=== PATIENT | female | born 1995 | race Caucasian/White ===

== ENCOUNTER 2021-05-30 03:40 | Inpatient (IN) | payer BC ==
[2021-05-30] MEDS ORDERED: Sodium Chloride 0.9% 1,000 ML IV ONE (04:16)
[2021-05-30] MEDS ORDERED: Ondansetron 4 MG/2 ML SDV IVPUSH PRN (04:16)
[2021-05-30] MEDS: Dextrose 5%-Lactated Ringers 1,000 ML IV SCH ×3 (05:13→21:26)
[2021-05-30] MEDS ORDERED: Alum Hydrox/Mag Hydrox/Simeth 30 ML, Lidocaine 2% 15 ML PO ONE ×2 (05:43)
[2021-05-30] MEDS ORDERED: hydrOXYzine HCl 25 MG/ML SDV IM PRN (06:12)
--- NOTE | 2021-05-30 09:36 | US ---
Limited abdominal ultrasound: Multiple real-time images of the upper right abdomen were obtained. Comparison: No prior abdominal imaging is available. Liver shows no focal abnormality. Gallbladder contains no shadowing gallstones, gallbladder wall thickening or biliary duct dilatation. Pancreas is obscured due to bowel gas. Right kidney is not visualized. Main portal vein shows normal hepatopedal flow. Impression: 1. Midline structures are nonvisualized due to bowel gas. 2. Other portions of the right upper quadrant abdominal ultrasound are unremarkable. Diagnostic code #2
--- NOTE | 2021-05-30 09:36 | US ---
Limited obstetrical ultrasound: Multiple real-time images were obtained transabdominally. Comparison: Prior obstetrical imaging at 05/19/21. Dates: Working TEDDY: 09/23/21, gestational age 22 weeks 3 days Current ultrasound: TEDDY 10/07/21, gestational age 21 weeks 3 days presentation: Transverse Placenta: Anterior with slight placenta previa with inferior edge being within 2.2 cm from the internal cervical os Amniotic fluid: JENNIFER 10.7 cm Measurements: BPD: 4.77 cm - 20 weeks 3 days Head circumference: 18.57 cm - 20 weeks 6 days Abdominal circumference: 16.96 cm - 22 weeks 0 days Femur length: 3.92 cm - 22 weeks 4 days Estimated weight: 470 g (1 lb. 1 oz.), estimated weight is in the 45th percentile Heart rate: 159 bpm Growth curves: Various growth parameters are between the -2 and mean standard deviation lines. Growth is appropriate from prior exams. Impression: 1. Single intrauterine fetus currently transverse in position. Dates as noted above. 2. Slight low lying placenta. 3. growth is appropriate. No acute abnormality is identified. Diagnostic code #2
[2021-05-30] MEDS ORDERED: Promethazine 25 MG in Sodium Chloride 0.9% 50 ML IV ONE (10:45)
[2021-05-30] MEDS: Promethazine 25 MG in Sodium Chloride 0.9% 50 ML IV PRN ×2 (15:59→20:26)
[2021-05-31] MEDS: Promethazine 25 MG in Sodium Chloride 0.9% 50 ML IV PRN ×2 (01:45→08:57)
[2021-05-31] MEDS: Promethazine 25 MG Tab PO PRN ×2 (06:55→13:20)
--- NOTE | 2021-05-31 09:22 | PCM.PN ---
- General Info Date of Service: 05/31/21 Functional Status: Reports: Pain Controlled - Review of Systems General: Reports: No Symptoms HEENT: Reports: No Symptoms Pulmonary: Reports: No Symptoms Cardiovascular: Reports: No Symptoms Gastrointestinal: Reports: No Symptoms Genitourinary: Reports: No Symptoms Musculoskeletal: Reports: No Symptoms Skin: Reports: No Symptoms Neurological: Reports: No Symptoms Psychiatric: Reports: No Symptoms - Patient Data Vitals - Most Recent: Last Vital Signs Temp 37.1 C 05/31/21 06:20 Pulse 71 05/31/21 06:20 Resp 14 05/31/21 06:20 BP 111/79 05/31/21 06:20 Pulse Ox 96 05/31/21 06:20 Weight - Most Recent: 57.606 kg I&O - Last 24 Hours: Intake & Output 05/30/21 05/31/21 05/31/21 22:59 06:59 14:59 Intake Total 50 Output Total 200 Balance -150 Med Orders - Current: Current Medications Hydroxyzine HCl (Hydroxyzine Hcl 25 Mg/Ml Sdv) 50 mg IM Q6H PRN PRN Reason: Nausea Last Admin: 05/30/21 07:51 Dose: 50 mg Documented by: Dextrose/Lactated Ringer's (Dextrose 5%-Lactated Ringers) 1,000 mls @ 150 mls/hr IV ASDIRECTED KETTY Last Admin: 05/30/21 21:26 Dose: 150 mls/hr Documented by: Promethazine HCl 25 mg/ Sodium (Chloride) 51 mls @ 100 mls/hr IV Q4H PRN PRN Reason: Nausea Last Admin: 05/31/21 08:57 Dose: 100 mls/hr Documented by: Ondansetron HCl (Ondansetron 4 Mg/2 Ml Sdv) 4 mg IVPUSH Q4H PRN PRN Reason: Nausea Last Admin: 05/30/21 04:33 Dose: 4 mg Documented by: Promethazine HCl (Promethazine 25 Mg Tab) 25 mg PO Q4H PRN PRN Reason: Nausea/Vomiting Last Admin: 05/31/21 06:55 Dose: 25 mg Documented by: Discontinued Medications Al Hydroxide/Mg Hydroxide 30 (ml/ Lidocaine HCl 15 ml) 0 ml PO ONETIME ONE Stop: 05/30/21 05:44 Last Admin: 05/30/21 05:58 Dose: 45 ml Documented by: Sodium Chloride (Normal Saline) 1,000 mls @ 999 mls/hr IV ONETIME ONE Stop: 05/30/21 05:16 Last Admin: 05/30/21 04:28 Dose: 999 mls/hr Documented by: Promethazine HCl 25 mg/ Sodium (Chloride) 51 mls @ 100 mls/hr IV ONETIME ONE Stop: 05/30/21 11:15 Last Admin: 05/30/21 10:46 Dose: 100 mls/hr Documented by: - Exam General: Alert, Oriented HEENT: Pupils Equal, Pupils Reactive, EOMI, Mucous Membr. Moist/[place] Neck: Supple Lungs: Clear to Auscultation, Normal Respiratory Effort Cardiovascular: Regular Rate, Regular Rhythm GI/Abdominal Exam: Normal Bowel Sounds, Soft, Non-Tender, No Organomegaly, No Distention, No Abnormal Bruit, No Mass, Pelvis Stable (Female) Exam: Normal External Exam Extremities: Normal Inspection, Normal Range of Motion, Non-Tender, No Pedal Edema, Normal Capillary Refill Skin: Warm, Dry, Intact Wound/Incisions: Healing Well Neurological: No New Focal Deficit - Patient Data Result Diagrams: 05/30/21 04:25 05/30/21 04:25 Sepsis Event Note - Evaluation Sepsis Screening Result: No Definite Risk - Focused Exam Vital Signs: Vital Signs Temp Pulse Resp BP Pulse Ox 05/31/21 06:20 37.1 C 71 14 111/79 96 05/31/21 01:48 37.2 C 71 14 129/80 93 L - Problem List Review Problem List Initiated/Reviewed/Updated: Yes - My Orders Last 24 Hours: My Active Orders 05/31/21 09:00 CORONAVIRUS COVID-19 JE [MOLEC] Stat - Assessment Assessment:: 25 year old G1 here with nausea and intractable vomiting. Had been doing better over night. Now tried apple sauce and ice chips and had significant emesis. - Plan Plan:: Nausea and emesis. continue IV phenergan. Labs pending. Can try rectal phenergan if keeps down food and fluids with IV.
[2021-05-31] MEDS: Dextrose 5%-Lactated Ringers 1,000 ML IV SCH ×2 (10:30→16:44)
[2021-05-31] MEDS ORDERED: Levothyroxine 50 MCG Tab PO ONE (10:45)
[2021-05-31] MEDS ORDERED: Acetaminophen 650 MG Supp RECTAL ONE (16:12)
[2021-05-31] MEDS ORDERED: Acetaminophen 650 MG Supp ONE (17:43)
[2021-05-31] MEDS ORDERED: Acetaminophen 650 MG Supp RECTAL PRN (17:53)
[2021-05-31] MEDS ORDERED: Potassium Chloride 40 MEQ in Dextrose 5%-Lactated Ringers 1,000 ML IV SCH (18:15)
[2021-05-31] MEDS: Potassium Chloride 40 MEQ in Dextrose 5%-Lactated Ringers 1,000 ML IV SCH (19:39)
[2021-05-31] MEDS ORDERED: Glycerin Adult 2 GM Supp RECTAL ONE (20:47)
[2021-05-31] MEDS ORDERED: Simethicone 80 MG Tab.Chew PO PRN (20:48)
[2021-05-31] MEDS ORDERED: Glycerin Pediatric 1.2 GM Supp RECTAL ONE (21:13)
[2021-05-31] MEDS ORDERED: Glycerin Adult 2 GM Supp RECTAL PRN (22:06)
[2021-06-01] MEDS: Potassium Chloride 40 MEQ in Dextrose 5%-Lactated Ringers 1,000 ML IV SCH ×2 (02:24→08:58)
--- NOTE | 2021-06-01 02:29 | PCM.PN ---
- General Info Date of Service: 06/01/21 Functional Status: Reports: New Symptoms (significant bloating and distention, reports no BM since sunday and no gas since prior to that). Denies: Tolerating Diet - Review of Systems General: Reports: No Symptoms HEENT: Reports: No Symptoms Pulmonary: Reports: No Symptoms Cardiovascular: Reports: No Symptoms Gastrointestinal: Reports: No Symptoms Genitourinary: Reports: No Symptoms Musculoskeletal: Reports: No Symptoms Skin: Reports: No Symptoms Neurological: Reports: No Symptoms Psychiatric: Reports: No Symptoms - Patient Data Vitals - Most Recent: Last Vital Signs Temp 37.1 C 06/01/21 00:18 Pulse 82 06/01/21 00:18 Resp 14 06/01/21 00:18 BP 137/82 06/01/21 00:18 Pulse Ox 96 06/01/21 00:18 Weight - Most Recent: 57.606 kg I&O - Last 24 Hours: Intake & Output 05/31/21 05/31/21 06/01/21 14:59 22:59 06:59 Intake Total 120 800 Output Total 100 Balance 120 800 -100 Lab Results Last 24 Hours: Laboratory Results - last 24 hr 05/31/21 05/31/21 05/31/21 Range/Units 09:16 09:55 09:55 WBC 8.87 (3.98-10.04) K/mm3 RBC 4.09 (3.98-5.22) M/mm3 Hgb 11.6 (11.2-15.7) gm/dl Hct 34.8 (34.1-44.9) % MCV 85.1 (79.4-94.8) fl MCH 28.4 (25.6-32.2) pg MCHC 33.3 (32.2-35.5) g/dl RDW Std Deviation 47.3 H (36.4-46.3) fL Plt Count 218 (182-369) K/mm3 MPV 10.3 (9.4-12.3) fl Neut % (Auto) 88.6 H (34.0-71.1) % Lymph % (Auto) 4.8 L (19.3-51.7) % Burke % (Auto) 6.3 (4.7-12.5) % Eos % (Auto) 0.1 L (0.7-5.8) Baso % (Auto) 0.0 L (0.1-1.2) % Neut # (Auto) 7.85 H (1.56-6.13) K/mm3 Lymph # (Auto) 0.43 L (1.18-3.74) K/mm3 Burke # (Auto) 0.56 H (0.24-0.36) K/mm3 Eos # (Auto) 0.01 L (0.04-0.36) K/mm3 Baso # (Auto) 0.00 L (0.01-0.08) K/mm3 Sodium 143 (136-145) mEq/L Potassium 2.9 L (3.5-5.1) mEq/L Chloride 108 H (98-107) mEq/L Carbon Dioxide 25 (21-32) mEq/L Anion Gap 12.9 (5-15) BUN 6 L (7-18) mg/dL Creatinine 0.7 (0.55-1.02) mg/dL Est Cr Clr Drug Dosing 99.86 mL/min Estimated GFR (MDRD) > 60 (>60) mL/min BUN/Creatinine Ratio 8.6 L (14-18) Glucose 115 H (70-99) mg/dL Calcium 8.0 L (8.5-10.1) mg/dL SARS-CoV-2 RNA (JE) Negative (NEGATIVE) Med Orders - Current: Current Medications Acetaminophen (Acetaminophen 650 Mg Supp) 650 mg RECTAL Q6H PRN PRN Reason: Abdominal Pain Glycerin (Glycerin Adult 2 Gm Supp) 1 supp RECTAL ONETIME PRN PRN Reason: Constipation Hydroxyzine HCl (Hydroxyzine Hcl 25 Mg/Ml Sdv) 50 mg IM Q6H PRN PRN Reason: Nausea Last Admin: 05/30/21 07:51 Dose: 50 mg Documented by: Dextrose/Lactated Ringer's (Dextrose 5%-Lactated Ringers) 1,000 mls @ 150 mls/hr IV ASDIRECTED [facility] Last Admin: 05/31/21 16:44 Dose: 150 mls/hr Documented by: Promethazine HCl 25 mg/ Sodium (Chloride) 51 mls @ 100 mls/hr IV Q4H PRN PRN Reason: Nausea Last Admin: 05/31/21 08:57 Dose: 100 mls/hr Documented by: Potassium Chloride 40 meq/ (Dextrose/Lactated Ringer's) 1,020 mls @ 150 mls/hr IV Q7H KETTY Stop: 06/01/21 23:02 Last Admin: 05/31/21 19:39 Dose: 150 mls/hr Documented by: Levothyroxine Sodium (Levothyroxine 50 Mcg Tab) 50 mcg PO ACBREAKFAST KETTY Ondansetron HCl (Ondansetron 4 Mg/2 Ml Sdv) 4 mg IVPUSH Q4H PRN PRN Reason: Nausea Last Admin: 05/30/21 04:33 Dose: 4 mg Documented by: Promethazine HCl (Promethazine 25 Mg Tab) 25 mg PO Q4H PRN PRN Reason: Nausea/Vomiting Last Admin: 05/31/21 13:20 Dose: 25 mg Documented by: Simethicone (Simethicone 80 Mg Tab.Chew) 80 mg PO Q4H PRN PRN Reason: Gas Last Admin: 05/31/21 22:14 Dose: 80 mg Documented by: Discontinued Medications Acetaminophen (Acetaminophen 650 Mg Supp) 975 mg RECTAL NOW ONE Stop: 05/31/21 16:13 Last Admin: 05/31/21 16:48 Dose: Not Given Documented by: Acetaminophen (Acetaminophen 650 Mg Supp) Confirm Administered Dose 650 mg .ROUTE .STK-MED ONE Stop: 05/31/21 17:44 Last Admin: 05/31/21 18:00 Dose: 650 mg Documented by: Al Hydroxide/Mg Hydroxide 30 (ml/ Lidocaine HCl 15 ml) 0 ml PO ONETIME ONE Stop: 05/30/21 05:44 Last Admin: 05/30/21 05:58 Dose: 45 ml Documented by: Glycerin (Glycerin Adult 2 Gm Supp) 1 supp RECTAL ONETIME ONE Stop: 05/31/21 20:48 Last Admin: 05/31/21 21:33 Dose: Not Given Documented by: Glycerin (Glycerin Pediatric 1.2 Gm Supp) 3 gm RECTAL ONETIME ONE Stop: 05/31/21 21:14 Last Admin: 05/31/21 21:28 Dose: 3 gm Documented by: Sodium Chloride (Normal Saline) 1,000 mls @ 999 mls/hr IV ONETIME ONE Stop: 05/30/21 05:16 Last Admin: 05/30/21 04:28 Dose: 999 mls/hr Documented by: Promethazine HCl 25 mg/ Sodium (Chloride) 51 mls @ 100 mls/hr IV ONETIME ONE Stop: 05/30/21 11:15 Last Admin: 05/30/21 10:46 Dose: 100 mls/hr Documented by: Potassium Chloride 40 meq/ (Dextrose/Lactated Ringer's) 1,020 mls @ 150 mls/hr IV ASDIRECTED KETTY Stop: 06/04/21 01:02 Levothyroxine Sodium (Levothyroxine 50 Mcg Tab) 50 mcg PO ONETIME ONE Stop: 05/31/21 10:46 Last Admin: 05/31/21 13:11 Dose: 50 mcg Documented by: - Exam General: Alert, Oriented HEENT: Pupils Equal, Pupils Reactive, EOMI, Mucous Membr. Moist/[place] Neck: Supple Lungs: Clear to Auscultation, Normal Respiratory Effort Cardiovascular: Regular Rate, Regular Rhythm GI/Abdominal Exam: Normal Bowel Sounds, Soft, Non-Tender, No Organomegaly, No Distention, No Abnormal Bruit, No Mass, Pelvis Stable (Female) Exam: Normal External Exam, Normal Speculum Exam, Normal Bimanual Exam Back Exam: Normal Inspection, Full Range of Motion Extremities: Normal Inspection, Normal Range of Motion, Non-Tender, No Pedal Edema, Normal Capillary Refill Skin: Warm, Dry, Intact Wound/Incisions: Healing Well Neurological: No New Focal Deficit Psy/Mental Status: Alert, Normal Affect, Normal Mood - Patient Data Lab Results Last 24 hrs: Laboratory Results - last 24 hr 05/31/21 05/31/21 05/31/21 Range/Units 09:16 09:55 09:55 WBC 8.87 (3.98-10.04) K/mm3 RBC 4.09 (3.98-5.22) M/mm3 Hgb 11.6 (11.2-15.7) gm/dl Hct 34.8 (34.1-44.9) % MCV 85.1 (79.4-94.8) fl MCH 28.4 (25.6-32.2) pg MCHC 33.3 (32.2-35.5) g/dl RDW Std Deviation 47.3 H (36.4-46.3) fL Plt Count 218 (182-369) K/mm3 MPV 10.3 (9.4-12.3) fl Neut % (Auto) 88.6 H (34.0-71.1) % Lymph % (Auto) 4.8 L (19.3-51.7) % Burke % (Auto) 6.3 (4.7-12.5) % Eos % (Auto) 0.1 L (0.7-5.8) Baso % (Auto) 0.0 L (0.1-1.2) % Neut # (Auto) 7.85 H (1.56-6.13) K/mm3 Lymph # (Auto) 0.43 L (1.18-3.74) K/mm3 Burke # (Auto) 0.56 H (0.24-0.36) K/mm3 Eos # (Auto) 0.01 L (0.04-0.36) K/mm3 Baso # (Auto) 0.00 L (0.01-0.08) K/mm3 Sodium 143 (136-145) mEq/L Potassium 2.9 L (3.5-5.1) mEq/L Chloride 108 H (98-107) mEq/L Carbon Dioxide 25 (21-32) mEq/L Anion Gap 12.9 (5-15) BUN 6 L (7-18) mg/dL Creatinine 0.7 (0.55-1.02) mg/dL Est Cr Clr Drug Dosing 99.86 mL/min Estimated GFR (MDRD) > 60 (>60) mL/min BUN/Creatinine Ratio 8.6 L (14-18) Glucose 115 H (70-99) mg/dL Calcium 8.0 L (8.5-10.1) mg/dL SARS-CoV-2 RNA (JE) Negative (NEGATIVE) Result Diagrams: 05/31/21 09:55 05/31/21 09:55 Sepsis Event Note - Evaluation Sepsis Screening Result: No Definite Risk - Focused Exam Vital Signs: Vital Signs Temp Temp Pulse Resp BP Pulse Ox 06/01/21 00:18 37.1 C 82 14 137/82 96 05/31/21 19:33 37.8 C 73 14 120/79 96 05/31/21 18:30 37.8 C 05/31/21 17:30 37.3 C 77 16 132/94 H 97 05/31/21 16:49 37.6 C 05/31/21 16:48 37.6 C 05/31/21 15:52 38.1 C 90 18 141/97 H 100 - Problem List Review Problem List Initiated/Reviewed/Updated: Yes - My Orders Last 24 Hours: My Active Orders 05/31/21 16:56 Admission Status [Patient Status] [ADT] Routine 05/31/21 17:53 Acetaminophen [Tylenol] 650 mg RECTAL Q6H PRN 05/31/21 19:15 Potassium Chloride 40 meq Dextrose 5%-Lactated Ringers 1,000 ml IV Q7H 05/31/21 20:48 Simethicone 80 mg PO Q4H PRN 05/31/21 22:06 Glycerin [Adult Glycerin] 1 supp RECTAL ONETIME PRN 06/01/21 05:00 COMPREHENSIVE METABOLIC PN,CMP [CHEM] Routine 06/01/21 06:00 Levothyroxine [Synthroid] 50 mcg PO ACBREAKFAST - Assessment Assessment:: 25 year old G1 here with nausea and intractable vomiting. Had been doing better through evening but now feeling significant bloating and discomfort. Reports last BM Sunday (5-6 days ago) and no gas from before that. Trial of mineral enema and if no success/improvement discussed general surgery consult and either flat plat abdominal film or CT abdomen depending on surgical assessment.
--- NOTE | 2021-06-01 04:42 | PCM.SN.2 ---
- Free Text/Narrative Note: Patient feeling more poorly. Dizzy now too. Labs will be drawn now. Plan general surgery consult at [address] scan but would await his opinion.
[2021-06-01] MEDS ORDERED: Levothyroxine 50 MCG Tab PO SCH (06:00)
[2021-06-01] MEDS: Levothyroxine 50 MCG Tab PO SCH (08:59)
--- NOTE | 2021-06-01 09:01 | PCM.CONS ---
H&P History of Present Illness - General Date of Service: 06/01/21 Admit Problem/Dx: Admission Diagnosis/Problem Admission Diagnosis/Problem Source of Information: Patient History Limitations: Reports: No Limitations - History of Present Illness Initial Comments - Free Text/Narative: Ms. Izaguirre is a 25 yo woman who is 22 weeks () who was admitted 48 hours ago due to abdominal bloating, pain, nausea and vomiting. She was feeling well with no issues up to this point. She has hypothyroidism for which she takes synthroid but is otherwise healthy appearing and has had no prior abdominal operations. She has been unable to keep anything down for a few days now, vomiting frequently. She cannot recall passing flatus for the past few days. She was having normal bowel movements up to the time she started feeling ill. She was given a suppository last night and reports having a soft bowel movement afterwards. On exam, she appears mildly uncomfortable. Vitals are in normal range. Abdomen is distended, tympanitic, soft, with mild diffuse tenderness. A gestational and abdominal ultrasound were obtained with no pathologic findings noted- the gallbladder appeared normal with no stones. Her CBC is within normal range except for mild, stable anemia around 11.5 g/dL. CMP is significant only for hypokalemia around 3 mEq/dL, and U/A shows ketonuria. - Related Data Allergies/Adverse Reactions: Allergies Allergy/AdvReac Type Severity Reaction Status Date / Time No Known Allergies Allergy Verified 05/30/21 03:54 Home Medications: Home Meds Levothyroxine Sodium [Levothyroxine] 50 mcg PO DAILY 05/30/21 [History] No122/Iron/Folic Acid [ Multi Tablet] 1 each PO DAILY 05/30/21 [History] Past Medical History HEENT History: Reports: None Cardiovascular History: Reports: None Respiratory History: Reports: None Gastrointestinal History: Reports: None Genitourinary History: Reports: None [employer] History: Reports: Musculoskeletal History: Reports: None Neurological History: Reports: None Psychiatric History: Reports: None Endocrine/Metabolic History: Reports: Hypothyroidism Hematologic History: Reports: None Immunologic History: Reports: None Oncologic (Cancer) History: Reports: None Dermatologic History: Reports: None - Past Surgical History Neurological Surgical History: Reports: None Musculoskeletal Surgical History: Reports: None Social & Family History - Tobacco Use Tobacco Use Status *Q: Never Tobacco User Second Hand Smoke Exposure: No - Caffeine Use Caffeine Use: Reports: Energy Drinks, Soda - Recreational Drug Use Recreational Drug Use: No H&P Review of Systems - Review of Systems: Review Of Systems: See Below General: Reports: Malaise HEENT: Reports: No Symptoms Pulmonary: Reports: No Symptoms Cardiovascular: Reports: No Symptoms Gastrointestinal: Reports: Abdominal Pain, Nausea, Vomiting Genitourinary: Reports: No Symptoms Musculoskeletal: Reports: No Symptoms Skin: Reports: No Symptoms Psychiatric: Reports: No Symptoms Neurological: Reports: No Symptoms Hematologic/Lymphatic: Reports: No Symptoms Immunologic: Reports: No Symptoms Exam - Exam Exam: See Below - Vital Signs Vital Signs: Last Vital Signs Temp 36.8 C 06/01/21 03:59 Pulse 82 06/01/21 03:59 Resp 16 06/01/21 03:59 BP 125/94 H 06/01/21 03:59 Pulse Ox 97 06/01/21 03:59 Weight: 57.606 kg - Exam General: Alert, Oriented, Cooperative HEENT: Conjunctiva Clear Neck: Supple, Trachea Midline Lungs: Clear to Auscultation, Normal Respiratory Effort Cardiovascular: Regular Rate, Regular Rhythm GI/Abdominal Exam: Normal Bowel Sounds, Soft, Distended, Tender, Other (gravid uterus) (Female) Exam: Deferred Rectal (Female) Exam: Deferred Extremities: Normal Inspection Skin: Warm, Dry Neuro Extensive - Mental Status: Alert, Oriented x3, Normal Mood/Affect Psychiatric: Alert - Patient Data Lab Results Last 24 hrs: Laboratory Results - last 24 hr 05/31/21 05/31/21 05/31/21 Range/Units 09:16 09:55 09:55 WBC 8.87 (3.98-10.04) K/mm3 RBC 4.09 (3.98-5.22) M/mm3 Hgb 11.6 (11.2-15.7) gm/dl Hct 34.8 (34.1-44.9) % MCV 85.1 (79.4-94.8) fl MCH 28.4 (25.6-32.2) pg MCHC 33.3 (32.2-35.5) g/dl RDW Std Deviation 47.3 H (36.4-46.3) fL Plt Count 218 (182-369) K/mm3 MPV 10.3 (9.4-12.3) fl Neut % (Auto) 88.6 H (34.0-71.1) % Lymph % (Auto) 4.8 L (19.3-51.7) % [place] % (Auto) 6.3 (4.7-12.5) % Eos % (Auto) 0.1 L (0.7-5.8) Baso % (Auto) 0.0 L (0.1-1.2) % Neut # (Auto) 7.85 H (1.56-6.13) K/mm3 Lymph # (Auto) 0.43 L (1.18-3.74) K/mm3 [place] # (Auto) 0.56 H (0.24-0.36) K/mm3 Eos # (Auto) 0.01 L (0.04-0.36) K/mm3 Baso # (Auto) 0.00 L (0.01-0.08) K/mm3 Manual Slide Review Sodium 143 (136-145) mEq/L Potassium 2.9 L (3.5-5.1) mEq/L Chloride 108 H (98-107) mEq/L Carbon Dioxide 25 (21-32) mEq/L Anion Gap 12.9 (5-15) BUN 6 L (7-18) mg/dL Creatinine 0.7 (0.55-1.02) mg/dL Est Cr Clr Drug Dosing 99.86 mL/min Estimated GFR (MDRD) > 60 (>60) mL/min BUN/Creatinine Ratio 8.6 L (14-18) Glucose 115 H (70-99) mg/dL Calcium 8.0 L (8.5-10.1) mg/dL Total Bilirubin (0.2-1.0) mg/dL AST (15-37) U/L ALT (14-59) U/L Alkaline Phosphatase (46-116) U/L Total Protein (6.4-8.2) g/dl Albumin (3.4-5.0) g/dl Globulin gm/dL Albumin/Globulin Ratio (1-2) SARS-CoV-2 RNA (JE) Negative (NEGATIVE) 06/01/21 06/01/21 Range/Units 06:20 06:20 WBC 8.33 (3.98-10.04) K/mm3 RBC 3.87 L (3.98-5.22) M/mm3 Hgb 11.1 L (11.2-15.7) gm/dl Hct 33.2 L (34.1-44.9) % MCV 85.8 (79.4-94.8) fl MCH 28.7 (25.6-32.2) pg MCHC 33.4 (32.2-35.5) g/dl RDW Std Deviation 47.5 H (36.4-46.3) fL Plt Count 201 (182-369) K/mm3 MPV 10.0 (9.4-12.3) fl Neut % (Auto) 89.6 H (34.0-71.1) % Lymph % (Auto) 4.4 L (19.3-51.7) % [place] % (Auto) 5.5 (4.7-12.5) % Eos % (Auto) 0 L (0.7-5.8) Baso % (Auto) 0.1 (0.1-1.2) % Neut # (Auto) 7.46 H (1.56-6.13) K/mm3 Lymph # (Auto) 0.37 L (1.18-3.74) K/mm3 [place] # (Auto) 0.46 H (0.24-0.36) K/mm3 Eos # (Auto) 0.00 L (0.04-0.36) K/mm3 Baso # (Auto) 0.01 (0.01-0.08) K/mm3 Manual Slide Review Abnormal smear Sodium 140 (136-145) mEq/L Potassium 3.1 L (3.5-5.1) mEq/L Chloride 106 (98-107) mEq/L Carbon Dioxide 23 (21-32) mEq/L Anion Gap 14.1 (5-15) BUN 5 L (7-18) mg/dL Creatinine 0.6 (0.55-1.02) mg/dL Est Cr Clr Drug Dosing 116.50 mL/min Estimated GFR (MDRD) > 60 (>60) mL/min BUN/Creatinine Ratio 8.3 L (14-18) Glucose 138 H (70-99) mg/dL Calcium 7.9 L (8.5-10.1) mg/dL Total Bilirubin 0.3 (0.2-1.0) mg/dL AST 27 (15-37) U/L ALT 34 (14-59) U/L Alkaline Phosphatase 41 L (46-116) U/L Total Protein 6.2 L (6.4-8.2) g/dl Albumin 2.7 L (3.4-5.0) g/dl Globulin 3.5 gm/dL Albumin/Globulin Ratio 0.8 L (1-2) SARS-CoV-2 RNA (JE) (NEGATIVE) Result Diagrams: 06/01/21 06:20 06/01/21 06:20 Sepsis Event Note - Evaluation Sepsis Screening Result: No Definite Risk - Focused Exam Vital Signs: Vital Signs Temp Pulse Resp BP Pulse Ox 06/01/21 03:59 36.8 C 82 16 125/94 H 97 06/01/21 00:18 37.1 C 82 14 137/82 96 Consult PN Assessment/Plan Procedures: Procedures BLOOD TYPING SEROLOGIC ABO (03/29/21) BLOOD TYPING SEROLOGIC RH(D) (03/29/21) CHYLMD TRACH DNA AMP PROBE (03/29/21) COMPLETE CBC W/AUTO DIFF WBC (03/29/21) HEPATITIS B SURFACE AG IA (03/29/21) HEPATITIS C AB TEST (03/29/21) HIV-1 AG W/HIV-1 & -2 AB AG IA (03/29/21) N.GONORRHOEAE DNA AMP PROB (03/29/21) OB US >/= 14 WKS SNGL FETUS (05/19/21) RBC ANTIBODY SCREEN (03/29/21) RUBELLA ANTIBODY (03/29/21) SYPHILIS TEST NON-TREP QUAL (03/29/21) URINALYSIS AUTO W/O SCOPE (03/29/21) URINE CULTURE/COLONY COUNT (03/29/21) Problem List Initiated/Reviewed/Updated: Yes My Orders Last 24 Hours: My Active Orders 06/01/21 08:47 Abdomen 2V AP Flat Upright [CR] Urgent 06/01/21 08:49 TSH [CHEM] Routine 06/01/21 09:00 Potassium Chloride [KCl in Water 10 MEQ/100 ML] 10 meq Premix Bag 1 bag IV Q1H Plan: Nausea and vomiting for past 24 hours, with abdominal cramping and distention. Differential includes constipation, gastroenteritis, hyperemesis gravidarum, and less likely ileus or de symone small bowel obstruction. No evidence of acute abdomen or need for emergency surgery. Recommendations: -2 view plain films of abdomen to assess for ileus, constipation -check TSH -supplement 40 mEq K+ IV Requesting Provider: Charles Date Consult Requested: 06/01/21 Reason for Consult: abdominal pain, vomiting Patient History Reviewed: Yes Admission H&P Reviewed: Yes (no H&P for this admission in [facility]) Notified Requestor: Yes Time Spent (in minutes): 60
--- NOTE | 2021-06-01 09:11 | PCM.LDHP ---
L&D History of Present Illness - General Date of Service: 05/30/21 Admit Problem/Dx: Admission Diagnosis/Problem Admission Diagnosis/Problem Source of Information: Patient History Limitations: Reports: No Limitations - History of Present Illness Introduction:: Patient is admitted to observation during the course of last evening. She has a 2-day history of nausea in . She has had an inconsistent response to antiemetics. She has had the most relief from IV Phenergan. Has not had a significant bout of food in the last 2 days. Has been able to keep fluids down at times but throws it up at other times. She has had mild hypokalemia which is now being treated with IV fluids supplemented with potassium. The course the last 12 to 24 hours patient's abdomen has become somewhat firm and mildly distended. She is not had a bowel movement for at least 3 days by her history. Surgical consult was obtained. Will obtain a flatplate of the abdomen. Will treat as indicated by these results. Continue with IV fluid hydration. 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 TEDDY October 03, 2021 is based upon an early ultrasound done on March 29, 2021 at 13-1/7 weeks gestational age. This places her now approximately 22 weeks gestation. has been unremarkable up to this point. She has hypothyroid and thyroid function studies done early in the were unremarkable. She has been taking her thyroid medications up until the last 2 days when she is not able to keep meds down. She is reporting good activity. No significant contractions. Denies any loss of vaginal fluid, bleeding etc. Risk factors for the include hypothyroidism and nausea. Also distance from the hospital and that she lives in the [place], [place]. Laboratory testing in : Blood is be positive with a negative antibody screen. Hemoglobin at first lexa visit was 12.6 g/dL. Platelets are 234,000. She is rubella immune. RPR is nonreactive. Urinalysis was negative. B surface antigen and HIV assays were both negative. Chlamydia, gonorrhea, hepatitis C antibodies were negative. Allergies: None Medications: 1. Levothyroxine 50 mcg/day 2. vitamins daily Past medical history: 1. Hypothyroidism Past surgical history: Unremarkable Family history: Mother is alive but has hypothyroidism. Father is alive but suffers from atrial fibrillation. 1 brother alive and well. Paternal grandmother alive but with heart disease and a pacemaker. Maternal grandfather alive and well. Paternal grandmother with hypothyroidism. Paternal grandfather alive and well. No bleeding, clotting, or anesthesia problems noted in the family. Social history: Patient is single. Her significant other is Manuel Proctor. [place] in the [facility] area. She is a school graduate. She does not use any significance alcohol, drugs or tobacco. Review of systems: As per HPI. Skin: Negative Lungs: No infectious symptoms or shortness of breath Cardiovascular: No chest pain or exercise intolerance Breasts: No lumps, changes in size, pain, dimpling, discharge or axillary or supraclavicular concerns. GI: Negative : Per HPI. Musculoskeletal: Negative Neurological: Negative In general the patient is well-developed, well-nourished, pleasant female of stated age in no acute distress. Skin is warm dry without lesions. HEENT, neck and back within normal limits. Lungs are clear with good breath sounds in all lung grover. Cardiovascular exam shows regular and rhythm without murmurs. Abdomen upon admission to observation is mildly distended, firm, uncomfortable with palpation. No acute abdomen signs are noted. Genital exam is not performed as patient is having no problems referable to this area. Extremities and neurological exam are grossly within normal limits. 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: Musculoskeletal History: Reports: None Neurological History: Reports: None Psychiatric History: Reports: None Endocrine/Metabolic History: Reports: Hypothyroidism Hematologic History: Reports: None Immunologic History: Reports: None Oncologic (Cancer) History: Reports: None Dermatologic History: Reports: None - Past Surgical History Neurological Surgical History: Reports: None Musculoskeletal Surgical History: Reports: None Social & Family History - Tobacco Use Tobacco Use Status *Q: Never Tobacco User Second Hand Smoke Exposure: No - Caffeine Use Caffeine Use: Reports: Energy Drinks, Soda - Recreational Drug Use Recreational Drug Use: No H&P Review of Systems - Review of Systems: Review Of Systems: See Below L&D Exam - Exam Exam: See Below - Vital Signs Vital Signs: Last Vital Signs Temp 36.8 C 06/01/21 03:59 Pulse 82 06/01/21 03:59 Resp 16 06/01/21 03:59 BP 125/94 H 06/01/21 03:59 Pulse Ox 97 06/01/21 03:59 Weight: 57.606 kg - OB Specific Contraction Frequency (min): 0 Contraction Intensity: absent - Patient Data Lab Results Last 24 hrs: Laboratory Results - last 24 hr 05/31/21 05/31/21 05/31/21 Range/Units 09:16 09:55 09:55 WBC 8.87 (3.98-10.04) K/mm3 RBC 4.09 (3.98-5.22) M/mm3 Hgb 11.6 (11.2-15.7) gm/dl Hct 34.8 (34.1-44.9) % MCV 85.1 (79.4-94.8) fl MCH 28.4 (25.6-32.2) pg MCHC 33.3 (32.2-35.5) g/dl RDW Std Deviation 47.3 H (36.4-46.3) fL Plt Count 218 (182-369) K/mm3 MPV 10.3 (9.4-12.3) fl Neut % (Auto) 88.6 H (34.0-71.1) % Lymph % (Auto) 4.8 L (19.3-51.7) % [place] % (Auto) 6.3 (4.7-12.5) % Eos % (Auto) 0.1 L (0.7-5.8) Baso % (Auto) 0.0 L (0.1-1.2) % Neut # (Auto) 7.85 H (1.56-6.13) K/mm3 Lymph # (Auto) 0.43 L (1.18-3.74) K/mm3 [place] # (Auto) 0.56 H (0.24-0.36) K/mm3 Eos # (Auto) 0.01 L (0.04-0.36) K/mm3 Baso # (Auto) 0.00 L (0.01-0.08) K/mm3 Manual Slide Review Sodium 143 (136-145) mEq/L Potassium 2.9 L (3.5-5.1) mEq/L Chloride 108 H (98-107) mEq/L Carbon Dioxide 25 (21-32) mEq/L Anion Gap 12.9 (5-15) BUN 6 L (7-18) mg/dL Creatinine 0.7 (0.55-1.02) mg/dL Est Cr Clr Drug Dosing 99.86 mL/min Estimated GFR (MDRD) > 60 (>60) mL/min BUN/Creatinine Ratio 8.6 L (14-18) Glucose 115 H (70-99) mg/dL Calcium 8.0 L (8.5-10.1) mg/dL Total Bilirubin (0.2-1.0) mg/dL AST (15-37) U/L ALT (14-59) U/L Alkaline Phosphatase (46-116) U/L Total Protein (6.4-8.2) g/dl Albumin (3.4-5.0) g/dl Globulin gm/dL Albumin/Globulin Ratio (1-2) SARS-CoV-2 RNA (JE) Negative (NEGATIVE) 06/01/21 06/01/21 Range/Units 06:20 06:20 WBC 8.33 (3.98-10.04) K/mm3 RBC 3.87 L (3.98-5.22) M/mm3 Hgb 11.1 L (11.2-15.7) gm/dl Hct 33.2 L (34.1-44.9) % MCV 85.8 (79.4-94.8) fl MCH 28.7 (25.6-32.2) pg MCHC 33.4 (32.2-35.5) g/dl RDW Std Deviation 47.5 H (36.4-46.3) fL Plt Count 201 (182-369) K/mm3 MPV 10.0 (9.4-12.3) fl Neut % (Auto) 89.6 H (34.0-71.1) % Lymph % (Auto) 4.4 L (19.3-51.7) % [place] % (Auto) 5.5 (4.7-12.5) % Eos % (Auto) 0 L (0.7-5.8) Baso % (Auto) 0.1 (0.1-1.2) % Neut # (Auto) 7.46 H (1.56-6.13) K/mm3 Lymph # (Auto) 0.37 L (1.18-3.74) K/mm3 [place] # (Auto) 0.46 H (0.24-0.36) K/mm3 Eos # (Auto) 0.00 L (0.04-0.36) K/mm3 Baso # (Auto) 0.01 (0.01-0.08) K/mm3 Manual Slide Review Abnormal smear Sodium 140 (136-145) mEq/L Potassium 3.1 L (3.5-5.1) mEq/L Chloride 106 (98-107) mEq/L Carbon Dioxide 23 (21-32) mEq/L Anion Gap 14.1 (5-15) BUN 5 L (7-18) mg/dL Creatinine 0.6 (0.55-1.02) mg/dL Est Cr Clr Drug Dosing 116.50 mL/min Estimated GFR (MDRD) > 60 (>60) mL/min BUN/Creatinine Ratio 8.3 L (14-18) Glucose 138 H (70-99) mg/dL Calcium 7.9 L (8.5-10.1) mg/dL Total Bilirubin 0.3 (0.2-1.0) mg/dL AST 27 (15-37) U/L ALT 34 (14-59) U/L Alkaline Phosphatase 41 L (46-116) U/L Total Protein 6.2 L (6.4-8.2) g/dl Albumin 2.7 L (3.4-5.0) g/dl Globulin 3.5 gm/dL Albumin/Globulin Ratio 0.8 L (1-2) SARS-CoV-2 RNA (JE) (NEGATIVE) Result Diagrams: 06/01/21 06:20 06/01/21 06:20 Problem List Initiated/Reviewed/Updated: Yes Orders Last 24hrs: Active Orders 24 hr Category Date Time Status Admission Status [Patient Status] [ADT] Routine ADT 05/31/21 16:56 Active Enema [RC] ASDIRECTED Care 06/01/21 02:49 Active Notify Provider Consults [RC] ASDIRECTED Care 06/01/21 07:43 Active Consult to Physician [CONS] Stat Cons 06/01/21 07:41 Active Abdomen 2V AP Flat Upright [CR] Urgent Exams 06/01/21 08:47 Ordered TSH [CHEM] Routine Lab 06/01/21 06:20 Received Acetaminophen [Tylenol] Med 05/31/21 17:53 Active 650 mg RECTAL Q6H PRN Glycerin [Adult Glycerin] Med 05/31/21 22:06 Active 1 supp RECTAL ONETIME PRN Levothyroxine [Synthroid] Med 06/01/21 09:00 Active 50 mcg PO ACBREAKFAST Potassium Chloride 40 meq Med 05/31/21 19:15 Active Dextrose 5%-Lactated Ringers 1,000 ml IV Q7H Potassium Chloride [KCl in Water 10 MEQ/100 ML] 10 meq Med 06/01/21 09:30 Active Premix Bag 1 bag IV Q1H Simethicone Med 05/31/21 20:48 Active 80 mg PO Q4H PRN Medication Orders Acetaminophen (Acetaminophen 650 Mg Supp) 650 mg RECTAL Q6H PRN PRN Reason: Abdominal Pain Glycerin (Glycerin Adult 2 Gm Supp) 1 supp RECTAL ONETIME PRN PRN Reason: Constipation Hydroxyzine HCl (Hydroxyzine Hcl 25 Mg/Ml Sdv) 50 mg IM Q6H PRN PRN Reason: Nausea Last Admin: 05/30/21 07:51 Dose: 50 mg Documented by: PRICILA Dextrose/Lactated Ringer's (Dextrose 5%-Lactated Ringers) 1,000 mls @ 150 mls/hr IV ASDIRECTED COUNTS INCLUDE 234 BEDS AT THE [facility] Last Admin: 05/31/21 16:44 Dose: 150 mls/hr Documented by: Infusion: 05/31/21 16:44 Dose: 150 mls/hr Documented by: Admin: 05/31/21 10:30 Dose: 150 mls/hr Documented by: Infusion: 05/31/21 04:07 Dose: 150 mls/hr Documented by: Admin: 05/30/21 21:26 Dose: 150 mls/hr Documented by: Infusion: 05/30/21 16:53 Dose: 150 mls/hr Documented by: Admin: 05/30/21 10:12 Dose: 150 mls/hr Documented by: Infusion: 05/30/21 10:12 Dose: 150 mls/hr Documented by: Admin: 05/30/21 05:13 Dose: 150 mls/hr Documented by: ANNE MARIE Promethazine HCl 25 mg/ Sodium (Chloride) 51 mls @ 100 mls/hr IV Q4H PRN PRN Reason: Nausea Last Admin: 05/31/21 08:57 Dose: 100 mls/hr Documented by: Infusion: 05/31/21 02:16 Dose: 100 mls/hr Documented by: Admin: 05/31/21 01:45 Dose: 100 mls/hr Documented by: Infusion: 05/30/21 20:57 Dose: 100 mls/hr Documented by: Admin: 05/30/21 20:26 Dose: 100 mls/hr Documented by: Infusion: 05/30/21 16:30 Dose: 100 mls/hr Documented by: Admin: 05/30/21 15:59 Dose: 100 mls/hr Documented by: PRICILA Potassium Chloride 40 meq/ (Dextrose/Lactated Ringer's) 1,020 mls @ 150 mls/hr IV Q7H KETTY Stop: 06/01/21 23:02 Last Admin: 06/01/21 08:58 Dose: 150 mls/hr Documented by: Infusion: 06/01/21 08:58 Dose: 150 mls/hr Documented by: Admin: 06/01/21 02:24 Dose: 150 mls/hr Documented by: Infusion: 06/01/21 02:24 Dose: 150 mls/hr Documented by: Admin: 05/31/21 19:39 Dose: 150 mls/hr Documented by: MALIK Potassium Chloride 10 meq/ (Premix) 100 mls @ 100 mls/hr IV Q1H KETTY Stop: 06/01/21 13:29 Levothyroxine Sodium (Levothyroxine 50 Mcg Tab) 50 mcg PO ACBREAKFAST KETTY Last Admin: 06/01/21 08:59 Dose: 50 mcg Documented by: [id number] Ondansetron HCl (Ondansetron 4 Mg/2 Ml Sdv) 4 mg IVPUSH Q4H PRN PRN Reason: Nausea Last Admin: 05/30/21 04:33 Dose: 4 mg Documented by: MALIK Promethazine HCl (Promethazine 25 Mg Tab) 25 mg PO Q4H PRN PRN Reason: Nausea/Vomiting Last Admin: 05/31/21 13:20 Dose: 25 mg Documented by: Admin: 05/31/21 06:55 Dose: 25 mg Documented by: DAVEY Simethicone (Simethicone 80 Mg Tab.Chew) 80 mg PO Q4H PRN PRN Reason: Gas Last Admin: 05/31/21 22:14 Dose: 80 mg Documented by: MALIK Assessment/Plan Comment:: Nausea and emesis. continue IV phenergan. Labs pending. Can try rectal phenergan if keeps down food and fluids with IV. Assessment at time of observation admission: 1. 22-week intrauterine 2. Nausea with emesis 3. Moderate abdominal distention, discomfort 4. Has not had a bowel movement for the last 3 days plus. 5. Mild hypokalemia treated with IV potassium supplementation 6. Normal gallbladder ultrasound, normal OB ultrasound done 2 days ago. Plan: 1. General surgery consultation. We will do a flat plate of the abdomen and proceed with therapy directed by the flatplate. 2. Continue IV fluid hydration with potassium supplementation
[2021-06-01] MEDS: Potassium Chloride 10 MEQ in Premix Bag 1 BAG IV SCH ×2 (09:49→17:07)
--- NOTE | 2021-06-01 09:50 | CR ---
Abdomen: Supine and upright views of the abdomen were obtained. Comparison: No prior abdominal x-rays available. Diffuse gaseous dilatation is seen within the colon. Lack of gas is noted within the descending colon and rectum. Air-fluid levels are noted within the colon. Soft tissue fullness is seen within the left side of the pelvis and extending slightly superior. No free air is seen. Bony structures are unremarkable. Impression: 1. Significantly gas dilated colon with air-fluid levels. Lack of gas within the descending colon and rectum are seen. Soft tissue prominence is seen within the left side of the pelvis extending superiorly. Please correlate if patient has any symptoms to suggest ovarian torsion or other obstructing soft tissue abnormality. 2. No free air is seen at this time. Diagnostic code #5
--- NOTE | 2021-06-01 10:23 | PCM.PREANE ---
Preanesthetic Assessment - Procedure Proposed Procedure: Exploratory laparotomy - Anesthesia/Transfusion/Family Hx Anesthesia History: No Prior Anesthesia Family History of Anesthesia Reaction: No Transfusion History: No Prior Transfusion(s) Intubation History: Unknown - Review of Systems General: No Symptoms (22 weeks ), Fatigue Pulmonary: No Symptoms Cardiovascular: No Symptoms Gastrointestinal: Abdominal Pain (04/14), Constipation, Decreased Appetite, Nausea, Vomiting Neurological: No Symptoms Other: Reports: None, Thyroid Problems (Hypothyroid) - Physical Assessment NPO Status Date: 06/01/21 NPO Status Time: 08:00 (water) Vital Signs: Last Vital Signs Temp 36.8 C 06/01/21 08:03 Pulse 75 06/01/21 08:03 Resp 16 06/01/21 08:03 BP 105/65 06/01/21 08:03 Pulse Ox 96 06/01/21 08:03 Height: 1.6 m Weight: 57.606 kg ASA Class: 2 Mental Status: Alert & Oriented x3 Airway Class: Mallampati = 2 Dentition: Reports: Normal Dentition, Caries (bottom retainer) Thyro-Mental Finger Breadths: 3 Mouth Opening Finger Breadths: 3 ROM/Head Extension: Full Lungs: Clear to Auscultation, Normal Respiratory Effort Cardiovascular: Regular Rate, Regular Rhythm, No Murmurs - Lab Values: Laboratory Last Values WBC 8.33 K/mm3 (3.98-10.04) 06/01/21 06:20 RBC 3.87 M/mm3 (3.98-5.22) L 06/01/21 06:20 Hgb 11.1 gm/dl (11.2-15.7) L 06/01/21 06:20 Hct 33.2 % (34.1-44.9) L 06/01/21 06:20 MCV 85.8 fl (79.4-94.8) 06/01/21 06:20 MCH 28.7 pg (25.6-32.2) 06/01/21 06:20 MCHC 33.4 g/dl (32.2-35.5) 06/01/21 06:20 RDW Std Deviation 47.5 fL (36.4-46.3) H 06/01/21 06:20 Plt Count 201 K/mm3 (182-369) 06/01/21 06:20 MPV 10.0 fl (9.4-12.3) 06/01/21 06:20 Neut % (Auto) 89.6 % (34.0-71.1) H 06/01/21 06:20 Lymph % (Auto) 4.4 % (19.3-51.7) L 06/01/21 06:20 [place] % (Auto) 5.5 % (4.7-12.5) 06/01/21 06:20 Eos % (Auto) 0 (0.7-5.8) L 06/01/21 06:20 Baso % (Auto) 0.1 % (0.1-1.2) 06/01/21 06:20 Neut # (Auto) 7.46 K/mm3 (1.56-6.13) H 06/01/21 06:20 Lymph # (Auto) 0.37 K/mm3 (1.18-3.74) L 06/01/21 06:20 [place] # (Auto) 0.46 K/mm3 (0.24-0.36) H 06/01/21 06:20 Eos # (Auto) 0.00 K/mm3 (0.04-0.36) L 06/01/21 06:20 Baso # (Auto) 0.01 K/mm3 (0.01-0.08) 06/01/21 06:20 Manual Slide Review Abnormal smear 06/01/21 06:20 Sodium 140 mEq/L (136-145) 06/01/21 06:20 Potassium 3.1 mEq/L (3.5-5.1) L 06/01/21 06:20 Chloride 106 mEq/L (98-107) 06/01/21 06:20 Carbon Dioxide 23 mEq/L (21-32) 06/01/21 06:20 Anion Gap 14.1 (5-15) 06/01/21 06:20 BUN 5 mg/dL (7-18) L 06/01/21 06:20 Creatinine 0.6 mg/dL (0.55-1.02) 06/01/21 06:20 Est Cr Clr Drug Dosing 116.50 mL/min 06/01/21 06:20 Estimated GFR (MDRD) > 60 mL/min (>60) 06/01/21 06:20 BUN/Creatinine Ratio 8.3 (14-18) L 06/01/21 06:20 Glucose 138 mg/dL (70-99) H 06/01/21 06:20 Calcium 7.9 mg/dL (8.5-10.1) L 06/01/21 06:20 Total Bilirubin 0.3 mg/dL (0.2-1.0) 06/01/21 06:20 AST 27 U/L (15-37) 06/01/21 06:20 ALT 34 U/L (14-59) 06/01/21 06:20 Alkaline Phosphatase 41 U/L (46-116) L 06/01/21 06:20 Total Protein 6.2 g/dl (6.4-8.2) L 06/01/21 06:20 Albumin 2.7 g/dl (3.4-5.0) L 06/01/21 06:20 Globulin 3.5 gm/dL 06/01/21 06:20 Albumin/Globulin Ratio 0.8 (1-2) L 06/01/21 06:20 TSH 3rd Generation 1.861 uIU/mL (0.358-3.74) 06/01/21 06:20 Urine Color Yellow (Yellow) 05/30/21 03:49 Urine Appearance Clear (Clear) 05/30/21 03:49 Urine pH 6.0 (5.0-8.0) 05/30/21 03:49 Ur Specific [place] 1.025 (1.005-1.030) 05/30/21 03:49 Urine Protein Negative (Negative) 05/30/21 03:49 Urine Glucose (UA) Negative (Negative) 05/30/21 03:49 Urine Ketones 4+ (Negative) H 05/30/21 03:49 Urine Occult Blood Negative (Negative) 05/30/21 03:49 Urine Nitrite Negative (Negative) 05/30/21 03:49 Urine Bilirubin Negative (Negative) 05/30/21 03:49 Urine Urobilinogen 0.2 (0.2-1.0) 05/30/21 03:49 Ur Leukocyte Esterase Trace (Negative) H 05/30/21 03:49 Urine RBC 0-5 /hpf (0-5) 05/30/21 03:49 Urine WBC 0-5 /hpf (0-5) 05/30/21 03:49 Ur Squamous Epith Cells 5-10 /hpf (0-5) H 05/30/21 03:49 Urine Bacteria Moderate /hpf (FEW) H 05/30/21 03:49 Urine Mucus Few /hpf (FEW) 05/30/21 03:49 SARS-CoV-2 RNA (JE) Negative (NEGATIVE) 05/31/21 09:16 Above labs reviewed and noted and within acceptable ranges to proceed with scheduled procedure. - Allergies Allergies/Adverse Reactions: Allergies Allergy/AdvReac Type Severity Reaction Status Date / Time No Known Allergies Allergy Verified 05/30/21 03:54 - Anesthesia Plan Pre-Op Medication Ordered: None, Other (IV reglan 10mg and P.O bicitra 30 ml's both at 1035) - Acknowledgements Anesthesia Type Planned: General Anesthesia Pt an Appropriate Candidate for the Planned Anesthesia: Yes Alternatives and Risks of Anesthesia Discussed w Pt/Guardian: Yes Pt/Guardian Understands and Agrees with Anesthesia Plan: Yes PreAnesthesia Questionnaire HEENT History: Reports: None Cardiovascular History: Reports: None Respiratory History: Reports: None Gastrointestinal History: Reports: None Genitourinary History: Reports: None 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: Musculoskeletal History: Reports: None Neurological History: Reports: None Psychiatric History: Reports: None Endocrine/Metabolic History: Reports: Hypothyroidism Hematologic History: Reports: None Immunologic History: Reports: None Oncologic (Cancer) History: Reports: None Dermatologic History: Reports: None - Past Surgical History Neurological Surgical History: Reports: None Musculoskeletal Surgical History: Reports: None - SUBSTANCE USE Tobacco Use Status *Q: Never Tobacco User Second Hand Smoke Exposure: No Recreational Drug Use History: No - HOME MEDS Home Medications: Home Meds Levothyroxine Sodium [Levothyroxine] 50 mcg PO DAILY 05/30/21 [History] No122/Iron/Folic Acid [ Multi Tablet] 1 each PO DAILY 05/30/21 [History] - CURRENT (IN HOUSE) MEDS Current Meds: Current Medications Acetaminophen (Acetaminophen 650 Mg Supp) 650 mg RECTAL Q6H PRN PRN Reason: Abdominal Pain Glycerin (Glycerin Adult 2 Gm Supp) 1 supp RECTAL ONETIME PRN PRN Reason: Constipation Hydroxyzine HCl (Hydroxyzine Hcl 25 Mg/Ml Sdv) 50 mg IM Q6H PRN PRN Reason: Nausea Last Admin: 05/30/21 07:51 Dose: 50 mg Documented by: Dextrose/Lactated Ringer's (Dextrose 5%-Lactated Ringers) 1,000 mls @ 150 mls/hr IV ASDIRECTED [facility] Last Admin: 05/31/21 16:44 Dose: 150 mls/hr Documented by: Promethazine HCl 25 mg/ Sodium (Chloride) 51 mls @ 100 mls/hr IV Q4H PRN PRN Reason: Nausea Last Admin: 05/31/21 08:57 Dose: 100 mls/hr Documented by: Potassium Chloride 40 meq/ (Dextrose/Lactated Ringer's) 1,020 mls @ 150 mls/hr IV Q7H [facility] Stop: 06/01/21 23:02 Last Admin: 06/01/21 08:58 Dose: 150 mls/hr Documented by: Potassium Chloride 10 meq/ (Premix) 100 mls @ 100 mls/hr IV Q1H [facility] Stop: 06/01/21 13:29 Last Admin: 06/01/21 09:49 Dose: 100 mls/hr Documented by: Levothyroxine Sodium (Levothyroxine 50 Mcg Tab) 50 mcg PO ACBREAKFAST [facility] Last Admin: 06/01/21 08:59 Dose: 50 mcg Documented by: Ondansetron HCl (Ondansetron 4 Mg/2 Ml Sdv) 4 mg IVPUSH Q4H PRN PRN Reason: Nausea Last Admin: 05/30/21 04:33 Dose: 4 mg Documented by: Promethazine HCl (Promethazine 25 Mg Tab) 25 mg PO Q4H PRN PRN Reason: Nausea/Vomiting Last Admin: 05/31/21 13:20 Dose: 25 mg Documented by: Simethicone (Simethicone 80 Mg Tab.Chew) 80 mg PO Q4H PRN PRN Reason: Gas Last Admin: 05/31/21 22:14 Dose: 80 mg Documented by: Discontinued Medications Acetaminophen (Acetaminophen 650 Mg Supp) 975 mg RECTAL NOW ONE Stop: 05/31/21 16:13 Last Admin: 05/31/21 16:48 Dose: Not Given Documented by: Acetaminophen (Acetaminophen 650 Mg Supp) Confirm Administered Dose 650 mg .ROUTE .STK-MED ONE Stop: 05/31/21 17:44 Last Admin: 05/31/21 18:00 Dose: 650 mg Documented by: Al Hydroxide/Mg Hydroxide 30 (ml/ Lidocaine HCl 15 ml) 0 ml PO ONETIME ONE Stop: 05/30/21 05:44 Last Admin: 05/30/21 05:58 Dose: 45 ml Documented by: Glycerin (Glycerin Adult 2 Gm Supp) 1 supp RECTAL ONETIME ONE Stop: 05/31/21 20:48 Last Admin: 05/31/21 21:33 Dose: Not Given Documented by: Glycerin (Glycerin Pediatric 1.2 Gm Supp) 3 gm RECTAL ONETIME ONE Stop: 05/31/21 21:14 Last Admin: 05/31/21 21:28 Dose: 3 gm Documented by: Sodium Chloride (Normal Saline) 1,000 mls @ 999 mls/hr IV ONETIME ONE Stop: 05/30/21 05:16 Last Admin: 05/30/21 04:28 Dose: 999 mls/hr Documented by: Promethazine HCl 25 mg/ Sodium (Chloride) 51 mls @ 100 mls/hr IV ONETIME ONE Stop: 05/30/21 11:15 Last Admin: 05/30/21 10:46 Dose: 100 mls/hr Documented by: Potassium Chloride 40 meq/ (Dextrose/Lactated Ringer's) 1,020 mls @ 150 mls/hr IV ASDIRECTED [facility] Stop: 06/04/21 01:02 Levothyroxine Sodium (Levothyroxine 50 Mcg Tab) 50 mcg PO ACBREAKFAST [facility] Levothyroxine Sodium (Levothyroxine 50 Mcg Tab) 50 mcg PO ONETIME ONE Stop: 05/31/21 10:46 Last Admin: 05/31/21 13:11 Dose: 50 mcg Documented by:
[2021-06-01] MEDS ORDERED: Citric Acid/Sodium Citrate Solution 30 ML Cup ONE (10:29)
[2021-06-01] MEDS ORDERED: Metoclopramide 10 MG/2 ML SDV ONE (10:29)
[2021-06-01] MEDS ORDERED: Bupivacaine 0.5%/EPINEPHrine 1:200,000 50 ML MDV ONE (10:33)
[2021-06-01] MEDS ORDERED: Metoclopramide 10 MG/2 ML SDV IVPUSH ONE (10:33)
[2021-06-01] MEDS ORDERED: Citric Acid/Sodium Citrate Solution 30 ML Cup PO ONE (10:33)
[2021-06-01] MEDS ORDERED: Lactated Ringers 1,000 ML IV ONE (10:42)
[2021-06-01] MEDS: Lactated Ringers 1,000 ML ONE ×2 (10:44→10:50)
[2021-06-01] MEDS ORDERED: Propofol 200 MG/20 ML SDV ONE (10:55)
[2021-06-01] MEDS ORDERED: Rocuronium 50 MG/5 ML Vial ONE ×2 (10:55→13:25)
[2021-06-01] MEDS ORDERED: fentaNYL 250 MCG/5 ML SDV ONE ×2 (10:55→11:45)
[2021-06-01] MEDS ORDERED: Ondansetron 4 MG/2 ML SDV ONE (10:55)
[2021-06-01] MEDS ORDERED: Succinylcholine/Sod PF 100 MG/5 ML SYRINGE IV ONE (10:55)
[2021-06-01] MEDS ORDERED: Lidocaine 1% 4 ML ONE (10:55)
[2021-06-01] MEDS ORDERED: ceFAZolin 1 GM Vial ONE (10:56)
[2021-06-01] MEDS ORDERED: HYDROmorphone 0.5 MG/0.5 ML Syringe ONE ×3 (11:34→13:59)
[2021-06-01] MEDS ORDERED: ePHEDrine 50 MG/ML SDV ONE (11:36)
[2021-06-01] MEDS ORDERED: Lactated Ringers 1,000 ML ONE ×3 (11:38→13:45)
[2021-06-01] MEDS ORDERED: Ondansetron 4 MG/2 ML SDV IVPUSH PRN (11:50)
[2021-06-01] MEDS ORDERED: fentaNYL 100 MCG/2 ML SDV IVPUSH PRN (11:50)
[2021-06-01] MEDS ORDERED: HYDROmorphone 0.5 MG/0.5 ML Syringe IVPUSH PRN (11:50)
[2021-06-01] MEDS ORDERED: fentaNYL 100 MCG/2 ML SDV ONE ×2 (12:56→13:26)
--- NOTE | 2021-06-01 14:45 | PCM.POSTAN ---
POST ANESTHESIA ASSESSMENT - MENTAL STATUS Mental Status: Alert, Oriented - VITAL SIGNS Vital Signs: Last Vital Signs Temp 99.7 F 06/01/21 10:30 Pulse 73 06/01/21 10:30 Resp 15 06/01/21 10:30 BP 106/84 06/01/21 10:30 Pulse Ox 97 06/01/21 10:30 1438 133/90 100% 99 11 98.2 - RESPIRATORY Respiratory Status: Respiratory Rate WNL, Airway Patent, O2 Saturation Stable, Supplemental Oxygen - CARDIOVASCULAR CV Status: Pulse Rate WNL, Blood Pressure Stable - GASTROINTESTINAL GI Status: No Symptoms - PAIN Pain Score: 0 - POST OP HYDRATION Hydration Status: Adequate & Stable
--- NOTE | 2021-06-01 15:19 | PCM.PRNOTE ---
- Free Text/Narrative Note: Date: 06/01/2021 Operation: laparotomy, left colectomy with end colostomy Surgeon: Lawrence Mosley MD Assisting: Eldon Garrison MD Indication: colonic obstruction DVT Ppx: SCD Antibiotic: Ancef 2 g IV pre-op EBL: 100 cc Findings: 25 yo woman, 22 weeks , with evidence of colonic obstruction. Very distended but viable colon with near-completely obstructing circumferential tumor near the junction of the descending and sigmoid colon. No mesenteric lymphadenopathy or other evidence of intra-abdominal metastasis. Distal transverse colon brought out as end colostomy. Detailed Report: The patient was taken to the operating room and placed supine on the table. Time out was performed and general endotracheal anesthesia initiated. The abdomen was prepped and draped in usual sterile fashion after placement of a loyd catheter. 10 cc 0.5% marcaine with epinpehrine was injected along planned midline laparot jillian incision. A 20 cm midline laparotomy was performed using the scalpel. Monopolar energy was used to dissect through subcutaneous fat to the linea alba. Fascia was grasped on either side of midline and elevated. The fascia and peritoneum were divided sharply and the abdominal cavity was entered safely. The incision was then completely opened and abdominal contents inspected. There was some serosanguinous ascites and massive dilation of the cecum, with less pronounced dilation of the transverse colon. The cecum was brought toward midline. On handling, there were two sizeable serosal tears but no evidence of perforation or bowel ischemia. A small colotomy was made to decompress the bowel of some air. Afterwards, the colotomy was closed in layers with transverse interrupted vicryl sutures. The colon was inspected carefully. There was no evidence of volvulus or significant small bowel dilation. There were no intraabdominal adhesions. On palpation of the descending colon near the start of the sigmoid colon was a palpable stricture with surrounding tissue induration that was initially thought to just be palpable intraluminal stool but on closer inspection felt markedly abnormal and seemed to be the point of obstruction. An oncologic resection was performed. Colon was divided with a linear stapler about 10 cm distal to the mass. The descending colon was reflected medially and the la teral attachments divided with monopolar energy along the white line of Toldt. As the colon was reflected medially, blunt dissection with a sponge stick was used to separate meso colon from the underlying retroperitoneum .The splenic flexure and distal tranverse colon were brought toward midline. The IMV was identified from the medial aspect and divided near its root with the Ligasure Impact. The colon was divided proximally about 20 cm from the mass at the distal transverse colon. Remaining mesentery was divided with the Ligasure. The specimen was opened on the back table and there was a circumferential near obstructing tumor. The specimen was sent for analysis. Next, cecal serosal tears were repaired with running 3-0 vicryl suture. There were two tears, each about 7 cm in length. Next, the left abdomen was prepared for colostomy creation. A circular incision was made through skin overlying the rectus muscle, just superior to the umbilicus. Dissection was taken down to the anterior rectus sheath. This was incised in cruciate fashion. muscle fibers were splayed to expose the posterior sheath. this was incised and dilated manually to three fingerbreadths. the end of the tranverse colon was brought up through the abdominal wall. Next, the midline was closed. Running 0 PDS suture was used to close fascia. Skin was closed with madai. A dressing was applied. Next, the colostomy was matured. The staple line was removed and colonic contents suctioned. Digital exam confirmed patency through the abdominal wall. Several interrupted 3-0 vicryl sutures were used to secure full thickness bites of colon the the surrounding skin circumferentially. The mesocolon lay at the medial aspect. An ostomy appliance was placed. Additional local anesthetic was placed around the ostomy site intradermally. The midline wound was then redressed. The patient tolerated the procedure well.
[2021-06-01] MEDS: Acetaminophen 325 MG Tab PO SCH ×2 (16:17→23:43)
[2021-06-01] MEDS: metroNIDAZOLE/Normal Saline 500 MG in Premix Bag 1 BAG IV SCH ×2 (16:18→23:37)
[2021-06-01] MEDS: Heparin Sodium 5,000 Units/ML Vial SUBCUT SCH ×2 (16:18→23:36)
[2021-06-01] MEDS: Prenatal Multivitamin with Calcium/Folic Acid/Iron Tab PO SCH ×2 (18:17→20:17)
[2021-06-01] MEDS: oxyCODONE 5 MG Tab PO PRN ×2 (18:17→23:36)
[2021-06-01] MEDS: Lactated Ringers 1,000 ML IV SCH (20:17)
[2021-06-01] MEDS: HYDROmorphone 1 MG/ML Syringe IVPUSH PRN (20:19)
[2021-06-02] MEDS: Lactated Ringers 1,000 ML IV SCH (02:11)
[2021-06-02] MEDS: HYDROmorphone 1 MG/ML Syringe IVPUSH PRN ×3 (02:12→23:49)
[2021-06-02] MEDS: Acetaminophen 325 MG Tab PO SCH ×3 (06:01→23:48)
[2021-06-02] MEDS: Levothyroxine 50 MCG Tab PO SCH (06:01)
[2021-06-02] MEDS: Heparin Sodium 5,000 Units/ML Vial SUBCUT SCH ×3 (06:02→23:48)
[2021-06-02] MEDS: metroNIDAZOLE/Normal Saline 500 MG in Premix Bag 1 BAG IV SCH ×2 (06:30→14:53)
[2021-06-02] MEDS: oxyCODONE 5 MG Tab PO PRN ×4 (07:31→19:59)
--- NOTE | 2021-06-02 07:58 | PCM.SN.2 ---
- Free Text/Narrative Note: 25 yo woman, 22 weeks , presented with near complete colonic obstruction from tumor in the descending colon. S/p laparotomy with segmental colectomy and end colostomy on 06/01. S: no issues overnight. Pain manageable. O: AF-sinus tachycardia around 100 bpm, stable, other VS wnl NG output ~250, non-bilious. Small amount of serosanguinous fluid in ostomy bag. Ample urine output. Awake and alert, appears relatively comfortable. Breathing comfortably on room air Abd slightly distended. Incision dressing with some minor sanguinous seep through. colon mucosa appears dark red. Loyd with clear output. Labs reviewed, CBC and BMP within normal limits. A: Appears to be doing well POD 1 after resection of presumed colon cancer. No stool output or significant amount of gas in ostomy bag. P: -continue scheduled tylenol with oxycodone and dilaudid as needed for pain -IS, OOB with PT today -change IVF to D5 1/2 NS w KCl @ 50 cc/hr -remove NG, start clear liquid diet. Await return of bowel function -remove loyd, f/u trial of void -flagyl to discontinue within 24 hrs post op -repeat CBC, BMP tomorrow. Add Mg, CEA level to AM labs tomorrow -heparin 5000 u SC for DVT ppx
[2021-06-02] MEDS ORDERED: D5 1/2 NS w/ 20 mEq/L KCl 1,000 ML IV SCH (08:00)
--- NOTE | 2021-06-02 08:27 | PCM48HPAN ---
Post Anesthesia Note - EVALUATION WITHIN 48HRS OF ANESTHETIC Vital Signs in Normal Range: Yes Patient Participated in Evaluation: Yes Respiratory Function Stable: Yes Airway Patent: Yes Cardiovascular Function Stable: Yes Hydration Status Stable: Yes Pain Control Satisfactory: Yes Nausea and Vomiting Control Satisfactory: Yes Mental Status Recovered: Yes Vital Signs: Last Vital Signs Temp 98.9 F 06/02/21 04:00 Pulse 95 06/02/21 04:00 Resp 16 06/02/21 04:00 BP 132/89 06/02/21 04:00 Pulse Ox 97 06/02/21 04:00
[2021-06-02] MEDS ORDERED: Non-Formulary Medication 1 Each (Levothyroxine Sodium [Levothyroxine] 50 MCG Capsule) PO SCH (09:00)
[2021-06-02] MEDS: Prenatal Multivitamin with Calcium/Folic Acid/Iron Tab PO SCH (18:48)
[2021-06-03] MEDS: oxyCODONE 5 MG Tab PO PRN ×4 (01:05→22:02)
[2021-06-03] MEDS: Heparin Sodium 5,000 Units/ML Vial SUBCUT SCH ×3 (06:28→22:01)
[2021-06-03] MEDS: Levothyroxine 50 MCG Tab PO SCH (06:29)
[2021-06-03] MEDS: Acetaminophen 325 MG Tab PO SCH ×3 (06:29→22:02)
--- NOTE | 2021-06-03 08:20 | PCM.SN.2 ---
- Free Text/Narrative Note: 25 yo woman, 22 weeks , presented with near complete colonic obstruction from tumor in the descending colon. S/p laparotomy with segmental colectomy and end colostomy on 06/01. S: no issues overnight. Pain improved. Ambulating, voiding, tolerating clear liquids. No output from colostomy. O: AF-sinus tachycardia around 100 bpm, stable, other VS wnl Awake and alert, appears comfortable Breathing comfortably on room air Abd slightly distended. Incision dressing clean, dry, intact. colon mucosa appears dark red/ obscured by mucus Labs reviewed, within normal range except Mg slightly low at 1.6. A: Appears to be doing well POD 2 after resection of presumed colon cancer. No stool output or significant amount of gas in ostomy bag. heart tones have been normal. Pathology pending. P: -continue scheduled tylenol with oxycodone and dilaudid as needed for pain -IS, OOB -change IVF to D5 1/2 NS w KCl @ 20 cc/hr -3 g Mg sulfate IV -trial regular diet, slow -no repeat labs unless clinically indicated -heparin 5000 u SC for DVT ppx -await return of bowel function
[2021-06-03] MEDS ORDERED: D5 1/2 NS w/ 20 mEq/L KCl 1,000 ML IV SCH (08:30)
[2021-06-03] MEDS ORDERED: Magnesium Sulfate/Water 2 GM in Premix Bag 1 BAG IV ONE (10:00)
[2021-06-03] MEDS: Prenatal Multivitamin with Calcium/Folic Acid/Iron Tab PO SCH (18:01)
[2021-06-04] MEDS: Levothyroxine 50 MCG Tab PO SCH (06:26)
[2021-06-04] MEDS: Acetaminophen 325 MG Tab PO SCH ×3 (06:27→22:07)
[2021-06-04] MEDS: oxyCODONE 5 MG Tab PO PRN ×3 (06:27→22:08)
[2021-06-04] MEDS: Heparin Sodium 5,000 Units/ML Vial SUBCUT SCH ×3 (06:27→22:08)
--- NOTE | 2021-06-04 07:32 | PCM.SN.2 ---
- Free Text/Narrative Note: 25 yo woman, 22 weeks , presented with near complete colonic obstruction from tumor in the descending colon. S/p laparotomy with segmental colectomy and end colostomy on 06/01. S: no issues overnight. Pain well controlled. Ambulating, voiding, tolerating regular diet. Reporting some gas output from colostomy. O: AF-sinus tachycardia around 100 bpm, stable, other VS wnl Awake and alert, appears comfortable and in good spirits Breathing comfortably on room air Abd slightly distended, less tender. Incision dressing clean, dry, intact. colon mucosa appears dark red/ obscured by mucus A: Appears to be doing well POD 3 after resection of presumed colon cancer. Minimal output from colostomy so far. heart tones have been normal. Pathology pending. P: -continue scheduled tylenol with oxycodone and dilaudid as needed for pain -IS, OOB -mauricio -regular diet, waiting for more ostomy output -no repeat labs unless clinically indicated -heparin 5000 u SC for DVT ppx
[2021-06-04] MEDS: Prenatal Multivitamin with Calcium/Folic Acid/Iron Tab PO SCH (19:29)
[2021-06-05] MEDS: Levothyroxine 50 MCG Tab PO SCH (06:44)
[2021-06-05] MEDS: oxyCODONE 5 MG Tab PO PRN (06:44)
[2021-06-05] MEDS: Heparin Sodium 5,000 Units/ML Vial SUBCUT SCH ×3 (06:44→22:00)
[2021-06-05] MEDS: Acetaminophen 325 MG Tab PO SCH ×3 (06:45→22:01)
--- NOTE | 2021-06-05 08:07 | PCM.SN.2 ---
- Free Text/Narrative Note: 25 yo woman, 22 weeks , presented with near complete colonic obstruction from tumor in the descending colon. S/p laparotomy with segmental colectomy and end colostomy on 06/01. S: no issues overnight. Pain well controlled. Ambulating, voiding, tolerating regular diet. Colostomy now with stool and gas output. O: AF-VSS Awake and alert, appears comfortable and in good spirits Breathing comfortably on room air Abd less distended, colostomy with brown liquid stool and gas. A: Appears to be doing well POD 4 after resection of presumed colon cancer. heart tones have been normal. Pathology pending. P: -continue scheduled tylenol with oxycodone and dilaudid as needed for pain -IS, OOB -medlocked -regular diet -no repeat labs unless clinically indicated -heparin 5000 u SC for DVT ppx -plan for discharge to home tomorrow if continuing to do well
[2021-06-05] MEDS: Prenatal Multivitamin with Calcium/Folic Acid/Iron Tab PO SCH (19:21)
[2021-06-06] MEDS: Acetaminophen 325 MG Tab PO SCH (06:45)
[2021-06-06] MEDS: Levothyroxine 50 MCG Tab PO SCH (06:45)
[2021-06-06] MEDS: Heparin Sodium 5,000 Units/ML Vial SUBCUT SCH ×2 (06:46→06:49)
--- NOTE | 2021-06-06 08:58 | PCM.DCSUM1 ---
Discharge Summary - Hospital Course Free Text/Narrative:: Mrs. Izaguirre is a 25 yo woman @ 22 weeks gestation with first who was admitted with abdominal pain, bloating, vomiting and obstipation on 05/30/2021. Abdominal plain films on 06/01 showed complete colonic obstruction at the descending colon. The patient was taken to the OR promptly. An obstructing malignant intraluminal mass was identified. An oncologic resection was performed and the patient was left with an end colostomy and Alexander pouch. She tolerated the operation well, and was kept in house until she had regular colostomy output and was able to tolerate a regular diet. She was deemed fit for discharge to home on POD 5. Diagnosis: Stroke: No - Discharge Data Discharge Date: 06/06/21 Discharge Disposition: Home, Self-Care 01 Condition: Good - Referral to Home Health Primary Care Physician: CINDY Matthews - Patient Summary/Data Operative Procedure(s) Performed: left colectomy with end colostomy Consults: Consultations 06/01/21 07:41 Consult to Physician [CONS] Stat 06/02/21 07:45 Consult to Physical Therapy [PT Evaluation and Treatment] [CONS] Routine 06/02/21 07:46 Consult to Occupational Therapy [OT Evaluation and Treatment] [CONS] Routine - Patient Instructions Diet: Usual Diet as Tolerated Activity: As Tolerated, No Lifting Over 10 Pounds Showering/Bathing: May Shower, No Tub Bathing/Swimming Wound/Incision Care: Keep Operative Site/Wound Site Clean and Dry Notify Provider of: Fever, Increased Pain, Swelling and Redness, Drainage, Nausea and/or Vomiting - Discharge Plan *PRESCRIPTION DRUG MONITORING PROGRAM REVIEWED*: Not Applicable *COPY OF PRESCRIPTION DRUG MONITORING REPORT IN PATIENT LISA: Not Applicable Prescriptions/Med Rec: oxyCODONE 5 mg PO Q4H PRN #20 tab PRN Reason: Pain Home Medications: Home Meds Levothyroxine Sodium [Levothyroxine] 50 mcg PO DAILY 05/30/21 [History] No122/Iron/Folic Acid [ Multi Tablet] 1 each PO DAILY 05/30/21 [History] oxyCODONE 5 mg PO Q4H PRN #20 tab 06/06/21 [Rx] Oxygen Therapy Mode: Room Air Patient Handouts: Colostomy Surgery, Adult, Care After, Colostomy Home Guide, Adult, Colostomy Surgery, Adult, Exploratory Laparotomy, Adult Referrals: Celina Belcher PA [Primary Care Provider] - Lawrence Mosley MD [Physician] - - Discharge Summary/Plan Comment DC Time >30 min.: No - Patient Data Vitals - Most Recent: Last Vital Signs Temp 36.8 C 06/06/21 06:44 Pulse 81 06/06/21 06:44 Resp 16 06/06/21 06:44 BP 128/87 06/06/21 06:44 Pulse Ox 98 06/06/21 06:44 Weight - Most Recent: 56.518 kg I&O - Last 24 hours: Intake & Output 06/05/21 06/06/21 06/06/21 22:59 06:59 14:59 Intake Total 800 1000 Output Total 200 200 Balance 600 800 Med Orders - Current: Current Medications Acetaminophen (Acetaminophen 325 Mg Tab) 975 mg PO Q8H KETTY Last Admin: 06/06/21 06:45 Dose: 975 mg Documented by: Heparin Sodium (Porcine) (Heparin Sodium 5,000 Units/Ml Vial) 5,000 units SUBCUT Q8H [facility] Last Admin: 06/06/21 06:49 Dose: Not Given Documented by: Hydromorphone HCl (Hydromorphone 1 Mg/Ml Syringe) 1 mg IVPUSH Q3H PRN PRN Reason: Pain Last Admin: 06/02/21 23:49 Dose: 1 mg Documented by: Hydroxyzine HCl (Hydroxyzine Hcl 25 Mg/Ml Sdv) 50 mg IM Q6H PRN PRN Reason: Nausea Last Admin: 05/30/21 07:51 Dose: 50 mg Documented by: Promethazine HCl 25 mg/ Sodium (Chloride) 51 mls @ 100 mls/hr IV Q4H PRN PRN Reason: Nausea Last Admin: 05/31/21 08:57 Dose: 100 mls/hr Documented by: Levothyroxine Sodium (Levothyroxine 50 Mcg Tab) 50 mcg PO ACBREAKFAST KETTY Last Admin: 06/06/21 06:45 Dose: 50 mcg Documented by: Ondansetron HCl (Ondansetron 4 Mg/2 Ml Sdv) 4 mg IVPUSH Q4H PRN PRN Reason: Nausea Last Admin: 05/30/21 04:33 Dose: 4 mg Documented by: Oxycodone HCl (Oxycodone 5 Mg Tab) 5 mg PO Q4H PRN PRN Reason: Pain (moderate 4-6) Last Admin: 06/05/21 06:44 Dose: 5 mg Documented by: Gonzalezat Multivit/[place]/Iron/Folic Ac ( Multivitamin With Calcium/Folic Acid/Iron Tab) 1 each PO DAILY@1900 KETTY Last Admin: 06/05/21 19:21 Dose: 1 each Documented by: Promethazine HCl (Promethazine 25 Mg Tab) 25 mg PO Q4H PRN PRN Reason: Nausea/Vomiting Last Admin: 05/31/21 13:20 Dose: 25 mg Documented by: Simethicone (Simethicone 80 Mg Tab.Chew) 80 mg PO Q4H PRN PRN Reason: Gas Last Admin: 05/31/21 22:14 Dose: 80 mg Documented by: Discontinued Medications Acetaminophen (Acetaminophen 650 Mg Supp) 975 mg RECTAL NOW ONE Stop: 05/31/21 16:13 Last Admin: 05/31/21 16:48 Dose: Not Given Documented by: Acetaminophen (Acetaminophen 650 Mg Supp) Confirm Administered Dose 650 mg .ROUTE .STK-MED ONE Stop: 05/31/21 17:44 Last Admin: 05/31/21 18:00 Dose: 650 mg Documented by: Acetaminophen (Acetaminophen 650 Mg Supp) 650 mg RECTAL Q6H PRN PRN Reason: Abdominal Pain Bupivacaine HCl/Epinephrine Bitart (Bupivacaine 0.5%/Epinephrine 1:200,000 50 Ml Mdv) Confirm Administered Dose 50 ml .ROUTE .STK-MED ONE Stop: 06/01/21 10:34 Last Admin: 06/01/21 11:30 Dose: 20 ml Documented by: Cefazolin Sodium (Cefazolin 1 Gm Vial) Confirm Administered Dose 2 gm .ROUTE .STK-MED ONE Stop: 06/01/21 10:57 Citric Acid/Sodium Citrate (Citric Acid/Sodium Citrate Solution 30 Ml Cup) Confirm Administered Dose 30 ml .ROUTE .STK-MED ONE Stop: 06/01/21 10:30 Last Admin: 06/01/21 10:43 Dose: Not Given Documented by: Citric Acid/Sodium Citrate (Citric Acid/Sodium Citrate Solution 30 Ml Cup) 30 ml PO ONETIME ONE Stop: 06/01/21 10:34 Last Admin: 06/01/21 10:40 Dose: 30 ml Documented by: Al Hydroxide/Mg Hydroxide 30 (ml/ Lidocaine HCl 15 ml) 0 ml PO ONETIME ONE Stop: 05/30/21 05:44 Last Admin: 05/30/21 05:58 Dose: 45 ml Documented by: Ephedrine Sulfate (Ephedrine 50 Mg/Ml Sdv) Confirm Administered Dose 50 mg .ROUTE .STK-MED ONE Stop: 06/01/21 11:37 Fentanyl (Fentanyl 250 Mcg/5 Ml Sdv) Confirm Administered Dose 250 mcg .ROUTE .STK-MED ONE Stop: 06/01/21 10:56 Fentanyl (Fentanyl 250 Mcg/5 Ml Sdv) Confirm Administered Dose 250 mcg .ROUTE .STK-MED ONE Stop: 06/01/21 11:46 Fentanyl (Fentanyl 100 Mcg/2 Ml Sdv) 50 mcg IVPUSH Q5M PRN PRN Reason: Pain Stop: 06/01/21 14:00 Fentanyl (Fentanyl 100 Mcg/2 Ml Sdv) Confirm Administered Dose 100 mcg .ROUTE .STK-MED ONE Stop: 06/01/21 12:57 Fentanyl (Fentanyl 100 Mcg/2 Ml Sdv) Confirm Administered Dose 100 mcg .ROUTE .STK-MED ONE Stop: 06/01/21 13:27 Glycerin (Glycerin Adult 2 Gm Supp) 1 supp RECTAL ONETIME ONE Stop: 05/31/21 20:48 Last Admin: 05/31/21 21:33 Dose: Not Given Documented by: Glycerin (Glycerin Pediatric 1.2 Gm Supp) 3 gm RECTAL ONETIME ONE Stop: 05/31/21 21:14 Last Admin: 05/31/21 21:28 Dose: 3 gm Documented by: Glycerin (Glycerin Adult 2 Gm Supp) 1 supp RECTAL ONETIME PRN PRN Reason: Constipation Glycopyrrolate (Glycopyrrolate 0.2 Mg/Ml 2 Ml Syringe) Confirm Administered Dose 0.4 mg .ROUTE .STK-MED ONE Stop: 06/01/21 13:43 Hydromorphone HCl (Hydromorphone 0.5 Mg/0.5 Ml Syringe) Confirm Administered Dose 0.5 mg .ROUTE .STK-MED ONE Stop: 06/01/21 11:35 Hydromorphone HCl (Hydromorphone 0.5 Mg/0.5 Ml Syringe) 0.5 mg IVPUSH Q10M PRN PRN Reason: Pain (severe 7-10) Stop: 06/01/21 14:00 Hydromorphone HCl (Hydromorphone 0.5 Mg/0.5 Ml Syringe) Confirm Administered Dose 0.5 mg .ROUTE .STK-MED ONE Stop: 06/01/21 12:21 Hydromorphone HCl (Hydromorphone 0.5 Mg/0.5 Ml Syringe) Confirm Administered Dose 0.5 mg .ROUTE .STK-MED ONE Stop: 06/01/21 14:00 Dextrose/Lactated Ringer's (Dextrose 5%-Lactated Ringers) 1,000 mls @ 150 mls/hr IV ASDIRECTED [facility] Last Admin: 05/31/21 16:44 Dose: 150 mls/hr Documented by: Sodium Chloride (Normal Saline) 1,000 mls @ 999 mls/hr IV ONETIME ONE Stop: 05/30/21 05:16 Last Admin: 05/30/21 04:28 Dose: 999 mls/hr Documented by: Promethazine HCl 25 mg/ Sodium (Chloride) 51 mls @ 100 mls/hr IV ONETIME ONE Stop: 05/30/21 11:15 Last Admin: 05/30/21 10:46 Dose: 100 mls/hr Documented by: Potassium Chloride 40 meq/ (Dextrose/Lactated Ringer's) 1,020 mls @ 150 mls/hr IV ASDIRECTED [facility] Stop: 06/04/21 01:02 Potassium Chloride 40 meq/ (Dextrose/Lactated Ringer's) 1,020 mls @ 150 mls/hr IV Q7H [facility] Stop: 06/01/21 23:02 Last Admin: 06/01/21 08:58 Dose: 150 mls/hr Documented by: Potassium Chloride 10 meq/ (Premix) 100 mls @ 100 mls/hr IV Q1H [facility] Stop: 06/01/21 13:29 Last Admin: 06/01/21 17:07 Dose: Not Given Documented by: Lactated Ringer's (Ringers, Lactated) Confirm Administered Dose 1,000 mls @ as directed .ROUTE .STK-MED ONE Stop: 06/01/21 10:21 Last Admin: 06/01/21 10:50 Dose: Not Given Documented by: Lactated Ringer's (Ringers, Lactated) 1,000 mls @ 999 mls/hr IV .BOLUS ONE Stop: 06/01/21 11:42 Last Admin: 06/01/21 10:48 Dose: 999 mls/hr Documented by: Lidocaine HCl (Xylocaine-Mpf 1%) Confirm Administered Dose 4 mls @ as directed .ROUTE .STK-MED ONE Stop: 06/01/21 10:56 Lactated Ringer's (Ringers, Lactated) Confirm Administered Dose 1,000 mls @ as directed .ROUTE .STK-MED ONE Stop: 06/01/21 11:39 Lactated Ringer's (Ringers, Lactated) Confirm Administered Dose 1,000 mls @ as directed .ROUTE .STK-MED ONE Stop: 06/01/21 12:55 Lactated Ringer's (Ringers, Lactated) Confirm Administered Dose 1,000 mls @ as directed .ROUTE .STK-MED ONE Stop: 06/01/21 13:46 Lactated Ringer's (Ringers, Lactated) 1,000 mls @ 100 mls/hr IV ASDIRECTED [facility] Last Admin: 06/02/21 02:11 Dose: 100 mls/hr Documented by: Metronidazole 500 mg/ Premix 100 mls @ 100 mls/hr IV Q8H [facility] Stop: 06/02/21 15:31 Last Admin: 06/02/21 14:53 Dose: 100 mls/hr Documented by: Potassium Chloride/Dextrose/Sod Cl (D5 1/2 Ns W/ 20 Meq/L Kcl) 1,000 mls @ 50 mls/hr IV ASDIRECTED [facility] Last Admin: 06/02/21 08:46 Dose: 50 mls/hr Documented by: Magnesium Sulfate/Dextrose 1 (gm/ Premix) 100 mls @ 100 mls/hr IV ONETIME ONE Stop: 06/03/21 09:29 Last Admin: 06/03/21 08:39 Dose: 100 mls/hr Documented by: Magnesium Sulfate 2 gm/ Premix 50 mls @ 25 mls/hr IV ONETIME ONE Stop: 06/03/21 11:59 Last Admin: 06/03/21 09:46 Dose: 25 mls/hr Documented by: Potassium Chloride/Dextrose/Sod Cl (D5 1/2 Ns W/ 20 Meq/L Kcl) 1,000 mls @ 20 mls/hr IV ASDIRECTED [facility] Last Admin: 06/03/21 08:39 Dose: 20 mls/hr Documented by: Levothyroxine Sodium (Levothyroxine 50 Mcg Tab) 50 mcg PO ACBREAKFAST [facility] Last Admin: 06/01/21 23:17 Dose: Not Given Documented by: Levothyroxine Sodium (Levothyroxine 50 Mcg Tab) 50 mcg PO ONETIME ONE Stop: 05/31/21 10:46 Last Admin: 05/31/21 13:11 Dose: 50 mcg Documented by: Metoclopramide HCl (Metoclopramide 10 Mg/2 Ml Sdv) Confirm Administered Dose 10 mg .ROUTE .STK-MED ONE Stop: 06/01/21 10:30 Last Admin: 06/01/21 10:43 Dose: Not Given Documented by: Metoclopramide HCl (Metoclopramide 10 Mg/2 Ml Sdv) 10 mg IVPUSH ONETIME ONE Stop: 06/01/21 10:34 Last Admin: 06/01/21 10:40 Dose: 10 mg Documented by: Miscellaneous Medication (Phenylephrine Hcl In 0.9% Nacl 1 Mg/10 Ml Syringe) Confirm Administered Dose 1 mg .ROUTE .STK-MED ONE Stop: 06/01/21 11:57 Neostigmine Methylsulfate (Neostigmine Methylsulfate 5 Mg/5 Ml Syringe) Confirm Administered Dose 5 mg .ROUTE .STK-MED ONE Stop: 06/01/21 13:43 Ondansetron HCl (Ondansetron 4 Mg/2 Ml Sdv) Confirm Administered Dose 4 mg .ROUTE .STK-MED ONE Stop: 06/01/21 10:56 Ondansetron HCl (Ondansetron 4 Mg/2 Ml Sdv) 4 mg IVPUSH ONETIME PRN PRN Reason: Nausea/Vomiting Stop: 06/01/21 14:00 Propofol (Propofol 200 Mg/20 Ml Sdv) Confirm Administered Dose 200 mg .ROUTE .STK-MED ONE Stop: 06/01/21 10:56 Rocuronium Filion (Rocuronium 50 Mg/5 Ml Vial) Confirm Administered Dose 50 mg .ROUTE .STK-MED ONE Stop: 06/01/21 10:56 Rocuronium Filion (Rocuronium 50 Mg/5 Ml Vial) Confirm Administered Dose 50 mg .ROUTE .STK-MED ONE Stop: 06/01/21 13:26
== END 2021-06-06 10:32 | disposition home or self-care (01) | DRG 547 ==
LOC: JD.OBCHECK 03:40 → JD.OB 03:41 → JD.OBCHECK 05-31 16:56 → JD.ICU 06-01 12:46 → OBSVTOIN 06-01 12:46 → JD.MS 06-03 14:44
PROVIDERS: ADMIT Obstetrics & Gynecology; ATTEND Surgery
PROC: 0DBM0ZZ Excision of Descending Colon, Open Approach (ICD-10-PCS; principal; 2021-06-01)
PROC: 0D1M0Z4 Bypass Descending Colon to Cutaneous, Open Approach (ICD-10-PCS; 2021-06-01)
DX: O99.612 Diseases of the digestive system complicating pregnancy, second trimester (principal); K92.89 Other specified diseases of the digestive system; Z3A.22 22 weeks gestation of pregnancy; K56.601 Complete intestinal obstruction, unspecified as to cause; Z20.822 Contact with and (suspected) exposure to COVID-19; R18.8 Other ascites
CPT/HCPCS: 00840; 36415; 74019; 74019-26; 76705; 76705-26; 76815; 76815-26; 80048; 80053; 81001; 82378; 83735; 84443; 85025; 96360; 96361; 96367; 96374; 99140; A9270-GY; J0330; J0690; J1170; J1644; J2370; J2405; J2550; J2704; J2710; J2765; J3010; J3410; J3475; J3480; J3490; J7030; J7120; J7121; J8597; U0002

== ENCOUNTER 2021-07-21 10:07 | Day surgery (SDC) | payer BC ==
--- NOTE | 2021-07-21 11:01 | PCM.PREANE ---
Preanesthetic Assessment - Procedure Proposed Procedure: colonoscopy - Anesthesia/Transfusion/Family Hx Anesthesia History: Prior Anesthesia Without Reaction Family History of Anesthesia Reaction: No Transfusion History: No Prior Transfusion(s) Intubation History: Unknown - Review of Systems General: No Symptoms Pulmonary: No Symptoms Cardiovascular: No Symptoms Gastrointestinal: No Symptoms Neurological: No Symptoms Other: Reports: Thyroid Problems - Physical Assessment NPO Status Date: 07/20/21 NPO Status Time: 19:00 Vital Signs: 119/74 67 100% 98.0 16 Height: 5 ft 3 in Weight: 58 kg ASA Class: 2 Mental Status: Alert & Oriented x3 Airway Class: Mallampati = 1 Dentition: Reports: Normal Dentition Thyro-Mental Finger Breadths: 3 Mouth Opening Finger Breadths: 3 ROM/Head Extension: Full Lungs: Clear to Auscultation, Normal Respiratory Effort Cardiovascular: Regular Rate, Regular Rhythm - Allergies Allergies/Adverse Reactions: Allergies Allergy/AdvReac Type Severity Reaction Status Date / Time No Known Allergies Allergy Verified 05/30/21 03:54 - Blood Blood Available: No - Acknowledgements Anesthesia Type Planned: MAC Pt an Appropriate Candidate for the Planned Anesthesia: Yes Alternatives and Risks of Anesthesia Discussed w Pt/Guardian: Yes Pt/Guardian Understands and Agrees with Anesthesia Plan: Yes PreAnesthesia Questionnaire HEENT History: Reports: None Cardiovascular History: Reports: None Respiratory History: Reports: None Gastrointestinal History: Reports: Other (See Below) (colon cancer) Genitourinary History: Reports: None [employer] History: Reports: : 1 (29 weeks) Musculoskeletal History: Reports: None Neurological History: Reports: None Psychiatric History: Reports: None Endocrine/Metabolic History: Reports: Hypothyroidism Hematologic History: Reports: None Immunologic History: Reports: None Oncologic (Cancer) History: Reports: Colon Dermatologic History: Reports: None - Past Surgical History GI Surgical History: Reports: Colostomy, Other (See Below) (colon resection- colon cancer) Neurological Surgical History: Reports: None Musculoskeletal Surgical History: Reports: None - SUBSTANCE USE Tobacco Use Status *Q: Never Tobacco User Tobacco Use Within Last Twelve Months: No Second Hand Smoke Exposure: No Days Per Week of Alcohol Use: 0 Recreational Drug Use History: No - HOME MEDS Home Medications: Home Meds Levothyroxine Sodium [Levothyroxine] 50 mcg PO DAILY 05/30/21 [History] No122/Iron/Folic Acid [ Multi Tablet] 1 each PO DAILY 05/30/21 [History] oxyCODONE 5 mg PO Q4H PRN #20 tab 06/06/21 [Rx]
[2021-07-21] MEDS ORDERED: Propofol 200 MG/20 ML SDV ONE (11:34)
--- NOTE | 2021-07-21 12:58 | PCM.PRNOTE ---
- Free Text/Narrative Note: Date: 07/21/2021 Procedure: screening colonoscopy History: obstructing sigmoid colon cancer, now with end colostomy Endoscopist: Lawrence Mosley MD Findings: minor gross appearance of proctitis in Alexander pouch. No abnormalities identified otherwise. Detailed Report: The patient was taken to the endoscopy suite and placed in left lateral decubitus position. Timeout was performed and monitored anesthesia care was initiated. The anus appeared normal. Digital rectal exam was unremarkable. The colonoscope was inserted into the rectum and advanced all the way to the proximal staple line which was approximately 30 cm from the anal verge. On entry, there did appear to be some minor gross inflammatory changes in the rectum. No polyps were identified. After the rectum and been distended with insufflation, the inflammatory changes seemed pretty mild. Air was suctioned from the pouch prior to withdrawal of the scope. Next, the patient was positioned supine in the colonoscope was then inserted into the colostomy. The scope was advanced to the cecum with ease. The appendiceal orifice was visualized. The impression of the gravid uterus could be seen at the ascending colon. No polyps or other worrisome lesions were identified. The prep was good and mucosa was well visualized. The scope was withdrawn and the ostomy bag reapplied. The patient tolerated the procedure well.
--- NOTE | 2021-07-21 13:01 | PCM48HPAN ---
Post Anesthesia Note - EVALUATION WITHIN 48HRS OF ANESTHETIC Vital Signs in Normal Range: Yes Patient Participated in Evaluation: Yes Respiratory Function Stable: Yes Airway Patent: Yes Cardiovascular Function Stable: Yes Hydration Status Stable: Yes Pain Control Satisfactory: Yes Nausea and Vomiting Control Satisfactory: Yes Mental Status Recovered: Yes - COMMENTS/OBSERVATIONS Free Text/Narrative:: awake with no complaints
== END 2021-07-21 14:10 | disposition home or self-care (01) ==
LOC: JD.SDS 10:07
PROVIDERS: ATTEND Surgery
DX: C18.7 Malignant neoplasm of sigmoid colon (principal); Z90.49 Acquired absence of other specified parts of digestive tract; Z79.899 Other long term (current) drug therapy; E03.9 Hypothyroidism, unspecified; Z79.890 Hormone replacement therapy
CPT/HCPCS: 44388; 45330; J2704; 00812

== ENCOUNTER 2021-07-27 07:27 | Emergency (ER) | payer BC, MEDICAID ==
[2021-07-27] MEDS ORDERED: fentaNYL 100 MCG/2 ML SDV IVPUSH ONE (08:16)
[2021-07-27] MEDS ORDERED: fentaNYL 100 MCG/2 ML SDV ONE (08:25)
[2021-07-27] MEDS ORDERED: Ondansetron 4 MG/2 ML SDV IVPUSH ONE (08:27)
--- NOTE | 2021-07-27 09:05 | PCM.CONS ---
H&P History of Present Illness - General Date of Service: 07/27/21 Admit Problem/Dx: colostomy prolapse Source of Information: Patient History Limitations: Reports: No Limitations - History of Present Illness Initial Comments - Free Text/Narative: Ms. 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 She has an end colostomy, and has had some minor issues with prolapse since she was last seen in clinic. She comes to the ER today with large bowel obstruction stemming from substantial stomal prolapse, with symptoms starting about 12 hours ago. Abdomen Pain Score (Numeric/FACES): 7 - Related Data Allergies/Adverse Reactions: Allergies Allergy/AdvReac Type Severity Reaction Status Date / Time No Known Allergies Allergy Verified 07/27/21 07:43 Home Medications: Home Meds Levothyroxine Sodium [Levothyroxine] 50 mcg PO DAILY 05/30/21 [History] No122/Iron/Folic Acid [ Multi Tablet] 1 each PO DAILY 05/30/21 [History] Past Medical History HEENT History: Reports: None Cardiovascular History: Reports: None Respiratory History: Reports: None Gastrointestinal History: Reports: Other (See Below) (colon cancer) Genitourinary History: Reports: None [employer]OR [employer] History: Reports: Musculoskeletal History: Reports: None Neurological History: Reports: None Psychiatric History: Reports: None Endocrine/Metabolic History: Reports: Hypothyroidism Hematologic History: Reports: None Immunologic History: Reports: None Oncologic (Cancer) History: Reports: Colon Dermatologic History: Reports: None - Past Surgical History GI Surgical History: Reports: Colostomy Neurological Surgical History: Reports: None Musculoskeletal Surgical History: Reports: None Social & Family History - Tobacco Use Tobacco Use Status *Q: Never Tobacco User - Caffeine Use Caffeine Use: Reports: None - Recreational Drug Use Recreational Drug Use: No H&P Review of Systems - Review of Systems: Review Of Systems: See Below General: Reports: Malaise HEENT: Reports: No Symptoms Pulmonary: Reports: No Symptoms Cardiovascular: Reports: No Symptoms Gastrointestinal: Reports: Abdominal Pain, Nausea, Vomiting Genitourinary: Reports: No Symptoms Musculoskeletal: Reports: No Symptoms Skin: Reports: No Symptoms Psychiatric: Reports: No Symptoms Neurological: Reports: No Symptoms Hematologic/Lymphatic: Reports: No Symptoms Immunologic: Reports: No Symptoms Exam - Exam Exam: See Below - Vital Signs Vital Signs: Last Vital Signs Temp 36.6 C 07/27/21 07:40 Pulse 71 07/27/21 07:40 Resp 18 07/27/21 07:40 BP 144/83 H 07/27/21 07:40 Pulse Ox 97 07/27/21 07:40 Weight: 60.691 kg - Exam General: Alert, Oriented, Mild Distress HEENT: Conjunctiva Clear Neck: Supple Lungs: Normal Respiratory Effort Cardiovascular: Regular Rate GI/Abdominal Exam: Other (colostomy prolapse, ~15 cm, with edematous and erythematous mucosa. Digitated deep to fascia without difficulty.) Skin: Warm, Dry Neuro Extensive - Mental Status: Alert, Oriented x3 Psychiatric: Normal Mood Sepsis Event Note - Focused Exam Vital Signs: Vital Signs Temp Pulse Resp BP Pulse Ox 07/27/21 07:40 36.6 C 71 18 144/83 H 97 Consult PN Assessment/Plan Procedures: Procedures BLOOD TYPING SEROLOGIC ABO (03/29/21) BLOOD TYPING SEROLOGIC RH(D) (03/29/21) CHYLMD TRACH DNA AMP PROBE (03/29/21) COLONOSCOPY THRU STOMA SPX (07/21/21) COMPLETE CBC W/AUTO DIFF WBC (03/29/21) DIAGNOSTIC SIGMOIDOSCOPY (07/21/21) HEPATITIS B SURFACE AG IA (03/29/21) HEPATITIS C AB TEST (03/29/21) HIV-1 AG W/HIV-1 & -2 AB AG IA (03/29/21) N.GONORRHOEAE DNA AMP PROB (03/29/21) OB US >/= 14 WKS SNGL FETUS (05/19/21) OB US FOLLOW-UP PER FETUS (06/24/21) RBC ANTIBODY SCREEN (03/29/21) RUBELLA ANTIBODY (03/29/21) SARS-COV-2 COVID-19 AMP PRB (07/18/21) SYPHILIS TEST NON-TREP QUAL (03/29/21) URINALYSIS AUTO W/O SCOPE (03/29/21) URINE CULTURE/COLONY COUNT (03/29/21) Problem List Initiated/Reviewed/Updated: Yes Plan: Stomal prolapse coated in table sugar. Pain medication and antiemetic administered. With two pairs of hands and some persistence, the prolapse was successfully completely reduced at bedside. Requesting Provider: [email or web address] Date Consult Requested: 07/27/21 Reason for Consult: stomal prolapse Patient History Reviewed: Yes Admission H&P Reviewed: Yes Time Spent (in minutes): 30
== END 2021-07-27 09:20 | disposition home or self-care (01) ==
LOC: JD.ED 07:27
DX: O99.891 Other specified diseases and conditions complicating pregnancy (principal); E03.9 Hypothyroidism, unspecified; Z3A.28 28 weeks gestation of pregnancy; Z79.899 Other long term (current) drug therapy; Z90.49 Acquired absence of other specified parts of digestive tract
CPT/HCPCS: 96374; 96375; 99283; J2405; J3010

== ENCOUNTER 2021-09-26 02:55 | Inpatient (IN) | payer BC, MEDICAID ==
[2021-09-26] MEDS ORDERED: Ondansetron 4 MG/2 ML SDV IVPUSH PRN ×2 (03:02→06:32)
[2021-09-26] MEDS ORDERED: Sodium Chloride 0.9% 10 ML Syringe FLUSH PRN (03:02)
[2021-09-26] MEDS ORDERED: Nalbuphine 10 MG/1 ML Vial IVPUSH PRN (03:02)
[2021-09-26] MEDS ORDERED: Oxytocin/Lactated Ringers 10 UNIT/1,000 ML BAG IV SCH ×2 (03:15)
[2021-09-26] MEDS: Lactated Ringers 1,000 ML IV SCH ×2 (04:05→23:29)
[2021-09-26] MEDS ORDERED: ePHEDrine 50 MG/ML SDV IVPUSH PRN (06:32)
[2021-09-26] MEDS ORDERED: diphenhydrAMINE 50 MG/ML SDV IVPUSH PRN (06:32)
[2021-09-26] MEDS ORDERED: fentaNYL 100 MCG/2 ML SDV EPIDUR PRN (06:32)
--- NOTE | 2021-09-26 06:35 | PCM.PREANE ---
Preanesthetic Assessment - Procedure Proposed Procedure: Epidural - Anesthesia/Transfusion/Family Hx Anesthesia History: Prior Anesthesia Without Reaction Family History of Anesthesia Reaction: No Transfusion History: No Prior Transfusion(s) Intubation History: Unknown - Review of Systems General: No Symptoms Pulmonary: No Symptoms Cardiovascular: No Symptoms Gastrointestinal: No Symptoms (History of colon cancer with a colon resection surgery noted. Colostomy noted.) Neurological: No Symptoms Other: Reports: Thyroid Problems (Hypothyroid) - Physical Assessment NPO Status Date: 09/26/21 NPO Status Time: 10:30 Vital Signs: Last Vital Signs Temp 36.6 C 09/26/21 03:10 Pulse 73 09/26/21 03:10 Resp 16 09/26/21 03:10 BP 150/95 H 09/26/21 03:10 Pulse Ox 98 09/26/21 03:10 Height: 1.6 m Weight: 66.224 kg ASA Class: 2 Mental Status: Alert & Oriented x3 Airway Class: Mallampati = 2 Dentition: Reports: Normal Dentition (bottom permanent retainer), Caries Thyro-Mental Finger Breadths: 3 Mouth Opening Finger Breadths: 3 ROM/Head Extension: Full Lungs: Clear to Auscultation, Normal Respiratory Effort Cardiovascular: Regular Rate, Regular Rhythm, No Murmurs - Lab Values: Laboratory Last Values WBC 6.96 K/mm3 (3.98-10.04) 09/26/21 03:20 RBC 4.70 M/mm3 (3.98-5.22) 09/26/21 03:20 Hgb 14.0 gm/dl (11.2-15.7) D 09/26/21 03:20 Hct 40.5 % (34.1-44.9) 09/26/21 03:20 MCV 86.2 fl (79.4-94.8) 09/26/21 03:20 MCH 29.8 pg (25.6-32.2) 09/26/21 03:20 MCHC 34.6 g/dl (32.2-35.5) 09/26/21 03:20 RDW Std Deviation 44.0 fL (36.4-46.3) 09/26/21 03:20 Plt Count 114 K/mm3 (182-369) L D 09/26/21 03:20 MPV TNP 09/26/21 03:20 Neut % (Auto) 71.9 % (34.0-71.1) H 09/26/21 03:20 Lymph % (Auto) 16.7 % (19.3-51.7) L 09/26/21 03:20 [place] % (Auto) 9.2 % (4.7-12.5) 09/26/21 03:20 Eos % (Auto) 1.3 (0.7-5.8) 09/26/21 03:20 Baso % (Auto) 0.3 % (0.1-1.2) 09/26/21 03:20 Neut # (Auto) 5.01 K/mm3 (1.56-6.13) 09/26/21 03:20 Lymph # (Auto) 1.16 K/mm3 (1.18-3.74) L 09/26/21 03:20 [place] # (Auto) 0.64 K/mm3 (0.24-0.36) H 09/26/21 03:20 Eos # (Auto) 0.09 K/mm3 (0.04-0.36) 09/26/21 03:20 Baso # (Auto) 0.02 K/mm3 (0.01-0.08) 09/26/21 03:20 Manual Slide Review Abnormal smear 09/26/21 03:20 PT 9.2 SECONDS (9.7-12.0) L 09/26/21 03:20 INR < 0.93 09/26/21 03:20 BUN 13 mg/dL (7-18) 09/26/21 03:20 Creatinine 0.8 mg/dL (0.55-1.02) 09/26/21 03:20 Est Cr Clr Drug Dosing 86.60 mL/min 09/26/21 03:20 Estimated GFR (MDRD) > 60 mL/min (>60) 09/26/21 03:20 Uric Acid 6.0 mg/dL (2.6-6.0) 09/26/21 03:20 AST 24 U/L (15-37) 09/26/21 03:20 ALT 17 U/L (14-59) 09/26/21 03:20 Lactate Dehydrogenase 163 U/L (81-234) 09/26/21 03:20 Ur Random Creatinine 24.1 mg/dL (30.0-125.0) L 09/26/21 05:25 U Random Total Protein < 6.0 mg/dL (0.0-11.8) 09/26/21 05:25 Protein/Creatinin Ratio TNP 09/26/21 05:25 SARS-CoV-2 RNA (JE) Negative (NEGATIVE) 09/26/21 04:00 Blood Type B POSITIVE 09/26/21 03:20 Gel Antibody Screen Negative 09/26/21 03:20 Above labs reviewed and noted and within acceptable ranges to proceed with epidural if desired. - Allergies Allergies/Adverse Reactions: Allergies Allergy/AdvReac Type Severity Reaction Status Date / Time No Known Allergies Allergy Verified 09/26/21 03:02 - Anesthesia Plan Pre-Op Medication Ordered: None - Acknowledgements Anesthesia Type Planned: Epidural Pt an Appropriate Candidate for the Planned Anesthesia: Yes Alternatives and Risks of Anesthesia Discussed w Pt/Guardian: Yes Pt/Guardian Understands and Agrees with Anesthesia Plan: Yes PreAnesthesia Questionnaire HEENT History: Reports: None Cardiovascular History: Reports: None Respiratory History: Reports: None Gastrointestinal History: Reports: Other (See Below) Other Gastrointestinal History: descending colon adenocarcinoma Genitourinary History: Reports: None CARDROOM HAND History: Reports: Musculoskeletal History: Reports: None Neurological History: Reports: None Psychiatric History: Reports: None Endocrine/Metabolic History: Reports: Hypothyroidism Hematologic History: Reports: None Immunologic History: Reports: None Oncologic (Cancer) History: Reports: Colon Dermatologic History: Reports: None - Past Surgical History GI Surgical History: Reports: Colonoscopy, Colostomy Neurological Surgical History: Reports: None Musculoskeletal Surgical History: Reports: None Other Oncologic Surgeries/Procedures: laparatomy, coloectmy with colostomy - SUBSTANCE USE Tobacco Use Status *Q: Never Tobacco User Second Hand Smoke Exposure: No Recreational Drug Use History: No - HOME MEDS Home Medications: Home Meds Levothyroxine Sodium [Levothyroxine] 50 mcg PO DAILY 05/30/21 [History] No122/Iron/Folic Acid [ Multi Tablet] 1 each PO DAILY 05/30/21 [History] - CURRENT (IN HOUSE) MEDS Current Meds: Current Medications Diphenhydramine HCl (Diphenhydramine 50 Mg/Ml Sdv) 25 mg IVPUSH Q6H PRN PRN Reason: pruritis Ephedrine Sulfate (Ephedrine 50 Mg/Ml Sdv) 5 mg IVPUSH ASDIRECTED PRN PRN Reason: Hypotension Fentanyl (Fentanyl 100 Mcg/2 Ml Sdv) 100 mcg EPIDUR Q3H PRN PRN Reason: Pain Fentanyl/Bupivacaine HCl (Bupivacaine/Fentanyl/Ns 100 Ml Bag) 100 ml EPIDUR ASDIRECTED KETTY Oxytocin/Lactated Ringer's (Pitocin In Lr 10 Units/1,000 Ml) 10 unit in 1,000 mls @ 12 mls/hr IV TITRATE KETTY; Protocol Last Titration: 09/26/21 06:10 Dose: 10 munits/min, 60 mls/hr Documented by: Oxytocin/Lactated Ringer's (Pitocin In Lr 10 Units/1,000 Ml) 10 unit in 1,000 mls @ 500 mls/hr IV .CONTINUOUS KETTY Lactated Ringer's (Ringers, Lactated) 1,000 mls @ 100 mls/hr IV ASDIRECTED KETTY Last Admin: 09/26/21 04:05 Dose: 100 mls/hr Documented by: Miscellaneous Medication (Phenylephrine Hcl In 0.9% Nacl 1 Mg/10 Ml Syringe) 0.1 mg IVPUSH Q10M PRN PRN Reason: Hypotension Nalbuphine HCl (Nalbuphine 10 Mg/1 Ml Vial) 10 mg IVPUSH Q2H PRN PRN Reason: Pain Ondansetron HCl (Ondansetron 4 Mg/2 Ml Sdv) 4 mg IVPUSH Q4H PRN PRN Reason: Nausea/Vomiting Ondansetron HCl (Ondansetron 4 Mg/2 Ml Sdv) 4 mg IVPUSH ONETIME PRN PRN Reason: Nausea/Vomiting Sodium Chloride (Sodium Chloride 0.9% 10 Ml Syringe) 10 ml FLUSH ASDIRECTED PRN PRN Reason: Keep Vein Open
[2021-09-26] MEDS ORDERED: Bupivacaine/fentaNYL/NS 100 ML Bag EPIDUR SCH (06:45)
--- NOTE | 2021-09-26 09:03 | PCM.LDHP ---
L&D History of Present Illness - General Date of Service: 09/26/21 Admit Problem/Dx: Patient Status Order with Admit Dx/Problem 09/26/21 03:02 Patient Status [ADT] Routine Admission Diagnosis/Problem Admission Diagnosis/Problem Source of Information: Patient History Limitations: Reports: No Limitations - History of Present Illness Introduction:: Lala is a 26 year old 1 female admitted for induction of labor on 09/26/21 at 39 weeks gestational age with an TEDDY of 10/03/21 based on early ultrasound on 03/29/21. Induction started at 0300 hrs, and prior to this she denies any regular contractions, cramping, bleeding, discharge. Upon examination, she feels well, does not feel the contractions. Notably, she was diagnosed with stage 2 adenocarcinoma of the colon during this and currently has a colostomy in place. She has been following Dr. Mosley for this. She also has hypothyroidism, which has been monitored throughout her . 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 Menarche was age 10. Had irregular menses prior to this , with cycles every 35-40 days; she was not on contraception. LMP was 01/09/21, which gave her an TEDDY of 10/16/21, however, her ultrasound on 03/29/21 gave an TEDDY of 10/03/21. Past obstetrics history: 1. Current , 39 weeks course: Initially seen on 03/29/21, and has been regularly seen by Dr. Garrison for care. Vitals, fundal height, heart rate, and weight gain (~24 lbs) throughout have been appropriate. Thyroid hormones have been within normal limits. Blood type: B+ Antibody screen: negative Urine culture: negative Rubella status: immune Hepatitis B surface antigen: negative RPR: nonreactive Hepatitis C: negative HIV: negative Gonorrhea: negative Chlamydia: negative Genetic testing: declined Anatomy ultrasound: 05/19/21, 06/24/21 One hour glucose tolerance test: 65 Hemoglobin: 12.6 --> 11.5 Platelets: 234 --> 127 GBS Status: negative Allergies: 1. No known allergies Medications: 1. Iron 235 mg daily 2. UQORA supplement daily 3. vitamine daily 4. Levothyroxine 50 mcg daily Past medical history: 1. Hypothyroidism 2. Colon cancer, s/p colectomy on 05/31/21 Past surgical history: 1. Laparotomy, colectomy, and colostomy placement 05/31/21 Family history: 1 brother without medical problems. Mother with a history of thyroid cancer. Father has atrial fibrillation. Maternal grandmother has a pacemaker and grandfather has no known problems. Paternal grandmother with hypothyroidism and history of skin cancer; grandfather with history of prostate cancer. No known problems affecting or blood disorders in other extended family members. Social history: Significant other is Manuel. They live in [place]. Patient denies alcohol, drug, and tobacco use during . Review of systems: Positive for a very mild headache, otherwise a comprehensive ROS is negative, including HEENT complaints, cough, shortness of breath, chest pain, extremity swelling, vision changes, abdominal pain, dysuria. Physical Exam: General: well-developed, well-nourished, pleasant, gravid female Skin: warm, dry, no lesions HEENT, neck, and back within normal limits Lungs: clear to auscultation bilaterally CV: regular rate and rhythm without murmurs Abdomen: gravid Genital digital exam: 1-2 cm dilated, 50% effaced, soft, mid-position, -3 station, cephalic presentation Extremities: no edema Neuro: no focal deficits noted, 2+ biceps reflexes bilaterally, 3+ patellar reflexes bilaterally, no clonus - Related Data Allergies/Adverse Reactions: Allergies Allergy/AdvReac Type Severity Reaction Status Date / Time No Known Allergies Allergy Verified 09/26/21 03:02 Home Medications: Home Meds Levothyroxine Sodium [Levothyroxine] 50 mcg PO DAILY 05/30/21 [History] No122/Iron/Folic Acid [ Multi Tablet] 1 each PO DAILY 05/30/21 [History] Past Medical History HEENT History: Reports: None Cardiovascular History: Reports: None Respiratory History: Reports: None Gastrointestinal History: Reports: Other (See Below) Other Gastrointestinal History: descending colon adenocarcinoma Genitourinary History: Reports: None CHAIN PULLER History: Reports: Musculoskeletal History: Reports: None Neurological History: Reports: None Psychiatric History: Reports: None Endocrine/Metabolic History: Reports: Hypothyroidism Hematologic History: Reports: None Immunologic History: Reports: None Oncologic (Cancer) History: Reports: Colon Dermatologic History: Reports: None - Past Surgical History GI Surgical History: Reports: Colonoscopy, Colostomy Neurological Surgical History: Reports: None Musculoskeletal Surgical History: Reports: None Other Oncologic Surgeries/Procedures: laparatomy, coloectmy with colostomy Social & Family History - Family History Family Medical History: No Pertinent Family History - Tobacco Use Tobacco Use Status *Q: Never Tobacco User Second Hand Smoke Exposure: No - Caffeine Use Caffeine Use: Reports: None - Recreational Drug Use Recreational Drug Use: No H&P Review of Systems - Review of Systems: Review Of Systems: See Below L&D Exam - Exam Exam: See Below - Vital Signs Vital Signs: Last Vital Signs Temp 97.9 F 09/26/21 03:10 Pulse 73 09/26/21 03:10 Resp 16 09/26/21 03:10 BP 150/95 H 09/26/21 03:10 Pulse Ox 98 09/26/21 03:10 Weight: 146 lb - Patient Data Lab Results Last 24 hrs: Laboratory Results - last 24 hr 09/26/21 09/26/21 09/26/21 Range/Units 03:20 03:20 03:20 WBC 6.96 (3.98-10.04) K/mm3 RBC 4.70 (3.98-5.22) M/mm3 Hgb 14.0 D (11.2-15.7) gm/dl Hct 40.5 (34.1-44.9) % MCV 86.2 (79.4-94.8) fl MCH 29.8 (25.6-32.2) pg MCHC 34.6 (32.2-35.5) g/dl RDW Std Deviation 44.0 (36.4-46.3) fL Plt Count 114 L D (182-369) K/mm3 MPV TNP Neut % (Auto) 71.9 H (34.0-71.1) % Lymph % (Auto) 16.7 L (19.3-51.7) % Sebastian % (Auto) 9.2 (4.7-12.5) % Eos % (Auto) 1.3 (0.7-5.8) Baso % (Auto) 0.3 (0.1-1.2) % Neut # (Auto) 5.01 (1.56-6.13) K/mm3 Lymph # (Auto) 1.16 L (1.18-3.74) K/mm3 Sebastian # (Auto) 0.64 H (0.24-0.36) K/mm3 Eos # (Auto) 0.09 (0.04-0.36) K/mm3 Baso # (Auto) 0.02 (0.01-0.08) K/mm3 Manual Slide Review Abnormal smear PT (9.7-12.0) SECONDS INR BUN 13 (7-18) mg/dL Creatinine 0.8 (0.55-1.02) mg/dL Est Cr Clr Drug Dosing 86.60 mL/min Estimated GFR (MDRD) > 60 (>60) mL/min Uric Acid 6.0 (2.6-6.0) mg/dL AST 24 (15-37) U/L ALT 17 (14-59) U/L Lactate Dehydrogenase 163 (81-234) U/L Ur Random Creatinine (30.0-125.0) mg/dL U Random Total Protein (0.0-11.8) mg/dL Protein/Creatinin Ratio SARS-CoV-2 RNA (JE) (NEGATIVE) Blood Type B POSITIVE Gel Antibody Screen Negative 09/26/21 09/26/21 09/26/21 Range/Units 03:20 04:00 05:25 WBC (3.98-10.04) K/mm3 RBC (3.98-5.22) M/mm3 Hgb (11.2-15.7) gm/dl Hct (34.1-44.9) % MCV (79.4-94.8) fl MCH (25.6-32.2) pg MCHC (32.2-35.5) g/dl RDW Std Deviation (36.4-46.3) fL Plt Count (182-369) K/mm3 MPV Neut % (Auto) (34.0-71.1) % Lymph % (Auto) (19.3-51.7) % Sebastian % (Auto) (4.7-12.5) % Eos % (Auto) (0.7-5.8) Baso % (Auto) (0.1-1.2) % Neut # (Auto) (1.56-6.13) K/mm3 Lymph # (Auto) (1.18-3.74) K/mm3 Sebastian # (Auto) (0.24-0.36) K/mm3 Eos # (Auto) (0.04-0.36) K/mm3 Baso # (Auto) (0.01-0.08) K/mm3 Manual Slide Review PT 9.2 L (9.7-12.0) SECONDS INR < 0.93 BUN (7-18) mg/dL Creatinine (0.55-1.02) mg/dL Est Cr Clr Drug Dosing mL/min Estimated GFR (MDRD) (>60) mL/min Uric Acid (2.6-6.0) mg/dL AST (15-37) U/L ALT (14-59) U/L Lactate Dehydrogenase (81-234) U/L Ur Random Creatinine 24.1 L (30.0-125.0) mg/dL U Random Total Protein < 6.0 (0.0-11.8) mg/dL Protein/Creatinin Ratio TNP SARS-CoV-2 RNA (JE) Negative (NEGATIVE) Blood Type Gel Antibody Screen Result Diagrams: 09/26/21 03:20 09/26/21 03:20 - Problem List (1) 39 weeks gestation of SNOMED Code(s): 25032395 ICD Code: Z3A.39 - 39 WEEKS GESTATION OF Status: Acute Current Visit: Yes (2) Colostomy in place SNOMED Code(s): 825112129, 714611340 ICD Code: Z93.3 - COLOSTOMY STATUS Status: Acute Current Visit: Yes (3) History of colon cancer SNOMED Code(s): 644074990 ICD Code: Z85.038 - PERSONAL HISTORY OF MALIGNANT NEOPLASM OF LARGE INTESTINE Status: Acute Current Visit: Yes (4) Hypothyroidism SNOMED Code(s): 97736709 ICD Code: E03.9 - HYPOTHYROIDISM, UNSPECIFIED Status: Acute Current Visit: Yes Problem List Initiated/Reviewed/Updated: Yes Orders Last 24hrs: Active Orders 24 hr Category Date Time Status Patient Status [ADT] Routine ADT 09/26/21 03:02 Active Activity as Tolerated [RC] PFP Care 09/26/21 03:02 Active Communication Order [RC] ASDIRECTED Care 09/26/21 03:02 Active Notify Provider [RC] ASDIRECTED Care 09/26/21 06:32 Active Notify Provider [RC] PFP Care 09/26/21 03:02 Active Notify Provider [RC] PRN Care 09/26/21 03:02 Active Peripheral IV Care [RC] . DIRECTED Care 09/26/21 03:03 Active RAPID PLASMA REAGIN,RPR [CHEM] Routine Lab 09/26/21 03:20 Received Bupivacaine/fentaNYL/NS [fentaNYL/Bupivacaine/NS 2 MCG- Med 09/26/21 06:45 Active 0.125% 100 ML] 100 ml EPIDUR ASDIRECTED Lactated Ringers [Ringers, Lactated] 1,000 ml Med 09/26/21 03:15 Active IV ASDIRECTED Nalbuphine [Nubain] Med 09/26/21 03:02 Active 10 mg IVPUSH Q2H PRN Ondansetron [Zofran] Med 09/26/21 06:32 Active 4 mg IVPUSH ONETIME PRN Ondansetron [Zofran] Med 09/26/21 03:02 Active 4 mg IVPUSH Q4H PRN Oxytocin/Lactated Ringers [Pitocin in LR 10 Units/1,000 Med 09/26/21 03:15 Active ML] 10 unit in 1,000 ml IV .CONTINUOUS Oxytocin/Lactated Ringers [Pitocin in LR 10 Units/1,000 Med 09/26/21 03:15 Active ML] 10 unit in 1,000 ml IV TITRATE Phenylephrine HCl In 0.9% NaCl [Phenylephrine 1 MG/10 Med 09/26/21 06:32 Active ML-NS] 0.1 mg IVPUSH Q10M PRN Sodium Chloride 0.9% [Saline Flush] Med 09/26/21 03:02 Active 10 ml FLUSH ASDIRECTED PRN diphenhydrAMINE [Benadryl] Med 09/26/21 06:32 Active 25 mg IVPUSH Q6H PRN ePHEDrine [ePHEDrine sulfate] Med 09/26/21 06:32 Active 5 mg IVPUSH ASDIRECTED PRN fentaNYL [Sublimaze] Med 09/26/21 06:32 Active 100 mcg EPIDUR Q3H PRN Electronic Heart Tones Ext w TOCO [WOMSER] Oth 09/26/21 03:02 Ordered Routine Electronic Heart Tones Internal [WOMSER] Per Unit Oth 09/26/21 03:02 Ordered Routine PIH Panel [OM.PC] Stat Oth 09/26/21 05:11 Ordered Peripheral IV Insertion Adult [OM.PC] Routine Oth 09/26/21 03:02 Ordered Resuscitation Status Routine Resus Stat 09/26/21 03:02 Ordered Medication Orders Diphenhydramine HCl (Diphenhydramine 50 Mg/Ml Sdv) 25 mg IVPUSH Q6H PRN PRN Reason: pruritis Ephedrine Sulfate (Ephedrine 50 Mg/Ml Sdv) 5 mg IVPUSH ASDIRECTED PRN PRN Reason: Hypotension Fentanyl (Fentanyl 100 Mcg/2 Ml Sdv) 100 mcg EPIDUR Q3H PRN PRN Reason: Pain Fentanyl/Bupivacaine HCl (Bupivacaine/Fentanyl/Ns 100 Ml Bag) 100 ml EPIDUR ASDIRECTED KETTY Oxytocin/Lactated Ringer's (Pitocin In Lr 10 Units/1,000 Ml) 10 unit in 1,000 mls @ 12 mls/hr IV TITRATE KETTY; Protocol Last Titration: 09/26/21 08:34 Dose: 16 munits/min, 96 mls/hr Documented by: Titration: 09/26/21 08:03 Dose: 14 munits/min, 84 mls/hr Documented by: Titration: 09/26/21 07:38 Dose: 12 munits/min, 72 mls/hr Documented by: Titration: 09/26/21 06:10 Dose: 10 munits/min, 60 mls/hr Documented by: Titration: 09/26/21 05:49 Dose: 8 munits/min, 48 mls/hr Documented by: Titration: 09/26/21 05:25 Dose: 6 munits/min, 36 mls/hr Documented by: Titration: 09/26/21 04:55 Dose: 4 munits/min, 24 mls/hr Documented by: Admin: 09/26/21 04:05 Dose: 2 munits/min, 12 mls/hr Documented by: DECKAMB Oxytocin/Lactated Ringer's (Pitocin In Lr 10 Units/1,000 Ml) 10 unit in 1,000 mls @ 500 mls/hr IV .CONTINUOUS KETTY Lactated Ringer's (Ringers, Lactated) 1,000 mls @ 100 mls/hr IV ASDIRECTED KETTY Last Admin: 09/26/21 04:05 Dose: 100 mls/hr Documented by: SHEYLA Miscellaneous Medication (Phenylephrine Hcl In 0.9% Nacl 1 Mg/10 Ml Syringe) 0.1 mg IVPUSH Q10M PRN PRN Reason: Hypotension Nalbuphine HCl (Nalbuphine 10 Mg/1 Ml Vial) 10 mg IVPUSH Q2H PRN PRN Reason: Pain Ondansetron HCl (Ondansetron 4 Mg/2 Ml Sdv) 4 mg IVPUSH Q4H PRN PRN Reason: Nausea/Vomiting Ondansetron HCl (Ondansetron 4 Mg/2 Ml Sdv) 4 mg IVPUSH ONETIME PRN PRN Reason: Nausea/Vomiting Sodium Chloride (Sodium Chloride 0.9% 10 Ml Syringe) 10 ml FLUSH ASDIRECTED PRN PRN Reason: Keep Vein Open Assessment/Plan Comment:: Assessment: 1Lisa Reeves is a 26 year old 1 female admitted for induction of labor on 09/26/21 at 39 weeks gestational age with an TEDDY of 10/03/21 based on early ultrasound on 03/29/21. 2. Blood pressures have been elevated during admission; physical exam revealed 3+ patellar reflexes, but not swelling; labs show increased hemoglobin, decreased platelets, increased uric acid, normal liver and kidney function, no proteinuria 3. complicated by history of colon cancer in s/p colectomy and colostomy currently in place 4. History of hypothyroidism 5. Open to epidural for labor analgesia 6. Plans to breastfeed Plan: 1. Admit for induction of labor at 39 weeks. Near continuous monitoring of heart tones. Routine labor care. Labor augmentation as needed. 2. Monitor vitals and labs closely for signs of pre-eclampsia. 3. Consult to Dr. Mosley for guidance regarding colostomy during labor. He said to call him when she begins pushing and recommended holding pressure during this part of labor. 4. Pain management as needed. Activity as tolerated. Lianna Virk, [facility]
--- NOTE | 2021-09-26 09:29 | PCM.SN.2 ---
- Free Text/Narrative Note: General Surgery Brief Consult Note Lala Izaguirre is a 26 yo woman who underwent emergent laparotomy for large bowel obstruction last Summer, found to have pT3N0 adenocarcinoma near the junction of the descending and sigmoid colon. She was about 20 weeks at that time. She has an end transverse colostomy. Subsequent colonoscopy showed no evidence of synchronous lesions or polyposis. She has been struggling with colostomy prolapse for several weeks, and is now admitted for scheduled induction of labor. Regarding concern for prolapse during delivery, so long as direct pressure is held at the fascial defect during Valsalva I do not anticipate any problems. I will be available to help in this regard.
[2021-09-26] MEDS ORDERED: Oxytocin/Lactated Ringers 20 UNIT/1,000 ML BAG IV SCH (09:45)
[2021-09-26] MEDS: Misoprostol 25 MCG (1/4 of 100 MCG) Tab VAG PRN ×2 (12:03→15:06)
[2021-09-27] MEDS: Lactated Ringers 1,000 ML IV SCH (02:53)
[2021-09-27] MEDS ORDERED: Sodium Chloride 0.9% 1,000 ML ONE (04:43)
[2021-09-27] MEDS ORDERED: Sodium Chloride 0.9% 1,000 ML SCH (04:45)
[2021-09-27] MEDS ORDERED: ceFAZolin 2 GM in Premix Bag 1 BAG IV ONE (05:54)
--- NOTE | 2021-09-27 06:04 | PCM.SN.2 ---
- Free Text/Narrative Note: Progress note: Lala has made slow progress to 5 cm, 90 percent effacement, +1 station, anterior. Some molding is noted. heart tones show some mild decreased variability occasional decelerations with somewhat late return to baseline. Variability is reasonable at this time. Internal pressure catheter was placed approximately 4 hours ago and shows contraction pattern that is less than optimal with a frequency of approximately 4 minutes and contractions mild in intensity. Pitocin has been turned off. Patient was started on [id number] mL of normal saline through the IUPC initially followed by 100 cc/h thereafter on pump. Her temperature is increased to just above 100. Patient feels warm by report. Plan: Will restart Pitocin and attempt to achieve adequate labor pattern. We will monitor heart tones closely. We will intervene as indicated by heart rate tracing. Ancef 2 g IV will be given at this time. Discussion was held with patient and significant other as to the plan and the possibility of intervention with if necessary. They appear to have no questions.
[2021-09-27] MEDS ORDERED: Azithromycin 500 MG in Sodium Chloride 0.9% 250 ML IV STA (06:21)
[2021-09-27] MEDS ORDERED: Azithromycin 500 MG Vial ONE (06:24)
[2021-09-27] MEDS ORDERED: Sodium Chloride 0.9% 250 ML ONE (06:25)
[2021-09-27] MEDS ORDERED: Oxytocin 10 Units/1 ML SDV ONE (06:26)
[2021-09-27] MEDS ORDERED: Ondansetron 4 MG/2 ML SDV ONE (06:26)
[2021-09-27] MEDS ORDERED: ceFAZolin 1 GM Vial ONE (06:26)
[2021-09-27] MEDS ORDERED: Ketorolac 30 MG/ML SDV ONE (06:26)
[2021-09-27] MEDS ORDERED: Lidocaine 2% with EPINEPHrine 1:200,000 20 ML SDV ONE (06:26)
[2021-09-27] MEDS ORDERED: Lactated Ringers 2,000 ML ONE (06:26)
[2021-09-27] MEDS ORDERED: fentaNYL 100 MCG/2 ML SDV ONE (06:26)
[2021-09-27] MEDS ORDERED: Morphine PF 10 MG/10 ML SDV ONE (06:27)
[2021-09-27] MEDS ORDERED: Metoclopramide 10 MG/2 ML SDV IVPUSH ONE (06:28)
[2021-09-27] MEDS ORDERED: Sodium Chloride 0.9% 10 ML Syringe FLUSH PRN (06:28)
[2021-09-27] MEDS ORDERED: Citric Acid/Sodium Citrate Solution 30 ML Cup PO ONE (06:28)
[2021-09-27] MEDS ORDERED: Azithromycin 500 MG AdvVial ONE (06:28)
[2021-09-27] MEDS ORDERED: Lactated Ringers 1,000 ML IV SCH (06:30)
[2021-09-27] MEDS ORDERED: HYDROmorphone 0.5 MG/0.5 ML Syringe IVPUSH PRN (06:38)
[2021-09-27] MEDS ORDERED: diphenhydrAMINE 50 MG/ML SDV IVPUSH PRN ×2 (06:38→08:44)
[2021-09-27] MEDS ORDERED: ePHEDrine 50 MG/ML SDV IVPUSH PRN ×2 (06:38→08:44)
[2021-09-27] MEDS ORDERED: Ondansetron 4 MG/2 ML SDV IVPUSH PRN (06:38)
[2021-09-27] MEDS ORDERED: fentaNYL 100 MCG/2 ML SDV IVPUSH PRN (06:38)
--- NOTE | 2021-09-27 06:43 | PCM.SN.2 ---
- Free Text/Narrative Note: Patient was restarted on Pitocin but with increase in frequency of contractions heart tones were somewhat compromised. Late decelerations and bradycardia ensued. Pitocin was discontinued. Baby is made good resuscitation in utero and heart tones are reasonable at this time. Decision was made to proceed to section. Procedure, risk, benefits, alternatives of care discussed in detail with patient and her significant other. They have. Understand, wish to proceed and signed a consent. Ancef 2 g plus azithromycin per protocol are given prior to the procedure. Dr. Mosley, general surgery, will assist with surgery.
[2021-09-27] MEDS ORDERED: Bupivacaine 0.5% 30 ML SDV ONE (06:44)
[2021-09-27] MEDS ORDERED: Meperidine 50 MG/ML Vial ONE (07:16)
[2021-09-27] MEDS ORDERED: Labetalol 100 MG/20 ML MDV ONE (07:23)
--- NOTE | 2021-09-27 07:49 | PCM.OPNOTE ---
- General Post-Op/Procedure Note Date of Surgery/Procedure: 09/27/21 Operative Procedure(s): Primary low uterine segment transverse section through Pfannenstiel skin incision Findings: Uterus found to be term size. Amniotic fluid is clear. Lower uterine segment was well-developed. Baby in vertex presentation with a left occiput posterior positioning. Umbilical cord loosely around the neck x1. Three-vessel cord. Baby in vertex presentation. Cervix adequately dilated to long egress of fluid. Female delivered at 0709 hrs. on 01/2021. 6 pound 5 ounce baby. Apgars of 9 and 9. Pre Op Diagnosis: 1. 39-week intrauterine . 2. intolerance of labor. 3. History of colon cancer diagnosed in pregnancystatus post resection of tumor with placement of a colostomy Post-Op Diagnosis: Same with delivery of viable, 6 pound 5 ounce (2870 g) female infant named Isabella Scott with Apgars of 9 and 9 at 0709 hrs. on 09/27/2021 Anesthesia Technique: Epidural Other Anesthesia Type: Marcaine 0.5% 10 mLlocal Primary Surgeon: Eldon Garrison Secondary Surgeon: Lawrence Mosley Anesthesia Provider: Taisha Edmonds Reason Solution Make Up Operator Was Necessary: Retraction, assistance, patient safety, quality of care. Fluid Replacement, Intraop: 950 Output, Urine Amount: 125 EBL in mLs: 600 Drain/Tube Comments:: Indwelling bladder catheter Complications: None Condition: Good Free Text/Narrative:: Intake & Output 09/26/21 09/27/21 09/27/21 22:59 06:59 14:59 Intake Total 0 Output Total 1750 Balance 0 -1750 Surgery duration: 26 minutes Procedure: The patient is appropriately consented. Patient was transferred to the room and placed in a supine position with a wedge under her right side. Epidural catheter had previously been placed for labor analgesia and was bolstered to anesthetic effect. Patient has a colostomy on her left side. The bag was removed and area was prepped gently with Betadine and covered with Telfa and Tegaderm. The patient was otherwise prepped and draped in usual fashion as the Amaro catheter was already placed . The anesthetic was checked and found to be adequate. 20 mL of Marcaine 0.5% was injected locally in the Pfannenstiel incision site. The Pfannenstiel skin incision was then made and carried down through skin, subcutaneous and fascial layers. The fascia was then undermined superiorly and inferiorly to allow for adequate operating room. The recti muscles midline and preperitoneal fat was bluntly dissected. Perit davis cavity was entered longitudinally. The vesicouterine peritoneum was then incised transversely and bladder flap was developed. Myometrium was incised transversely to the level of the amniotic sac. This incision was extended bilaterally in a blunt fashion. The amniotic sac was then ruptured resulting in clear amniotic fluid. A hand is placed in the low uterine segment and the baby's head was brought forth through the incision. The baby was completely delivered using fundal pressure in a routine fashion. The nose and mouth were bulb suctioned. Baby's cord was clamped x2 cut and baby was handed off to attending powerplant operator Dr Freire. Placenta was expressed after cord blood was obtained. Uterus was then exteriorized to allow for easier closure. The cervix was assessed and found to be dilated adequately to allow egress of blood. The uterus was closed in 2 layers. The first layer a running locked suture of 0 Monocryl, the second layer a running locked vertical mattress suture of 0 Monocryl. Sponge instrument needle counts are correct. The uterus was returned to the abdominal cavity and lateral gutters were cleared of blood. Once again sponge needle counts are correct. The anterior abdominal wall was closed with a #1 PDS suture from angle to angle. The subcutaneous area was found to be free of any bleeders. interrupted sutures of 3-0 Monocryl were used to reapproximate the subcutaneous layer.Skin was closed with a running subcuticular stitch of 3-0 Monocryl in a vertical mattress suture fashion using a Declan needle. Prineo mesh/glue was then applied to further approximate the incision. It should be noted that patient received 2 g of Ancef earlier because of elevated temperature and received a 1 g dose just prior to procedure along with ice and per protocol preoperatively for infection prophylaxis and had Pitocin infused after delivery of the placenta to facilitate uterine contraction. She also had sequential compression stockings in place for DVT prophylaxis. Patient was discharged from the operating room in satisfactory condition.
--- NOTE | 2021-09-27 07:53 | PCM.POSTAN ---
POST ANESTHESIA ASSESSMENT - MENTAL STATUS Mental Status: Alert - VITAL SIGNS Vital Signs: Last Vital Signs Temp 37.4 C 09/27/21 07:40 Pulse 100 09/26/21 07:40 Resp 18 09/27/21 07:40 BP 143/75 H 09/27/21 07:40 Pulse Ox 96 09/27/21 07:40 - RESPIRATORY Respiratory Status: Respiratory Rate WNL, Airway Patent, O2 Saturation Stable, Supplemental Oxygen - CARDIOVASCULAR CV Status: Pulse Rate WNL, Blood Pressure Stable - GASTROINTESTINAL GI Status: No Symptoms - POST OP HYDRATION Hydration Status: Adequate & Stable
[2021-09-27] MEDS ORDERED: Dextrose 5%-Lactated Ringers 1,000 ML IV SCH (08:44)
[2021-09-27] MEDS ORDERED: Acetaminophen/oxyCODONE 325-5 MG Tab PO PRN ×2 (08:44)
[2021-09-27] MEDS ORDERED: Naloxone 0.4 MG/ML SDV IVPUSH PRN (08:44)
[2021-09-27] MEDS ORDERED: ceFAZolin 1 GM Vial IM SCH (10:00)
[2021-09-27] MEDS: Levothyroxine 50 MCG Tab PO SCH (11:01)
[2021-09-27] MEDS: Ibuprofen 600 MG Tab PO SCH ×2 (13:33→20:26)
[2021-09-28] MEDS: Ibuprofen 600 MG Tab PO SCH ×4 (01:19→21:17)
--- NOTE | 2021-09-28 07:55 | PCM48HPAN ---
Post Anesthesia Note - EVALUATION WITHIN 48HRS OF ANESTHETIC Vital Signs in Normal Range: Yes Patient Participated in Evaluation: Yes Respiratory Function Stable: Yes Airway Patent: Yes Cardiovascular Function Stable: Yes Hydration Status Stable: Yes Pain Control Satisfactory: Yes Nausea and Vomiting Control Satisfactory: Yes Mental Status Recovered: Yes Vital Signs: Last Vital Signs Temp 37.3 C 09/28/21 00:15 Pulse 75 09/28/21 00:15 Resp 15 09/28/21 06:57 BP 133/75 09/28/21 00:15 Pulse Ox 98 09/28/21 06:57
[2021-09-28] MEDS: Levothyroxine 50 MCG Tab PO SCH (09:30)
[2021-09-29] MEDS: Ibuprofen 600 MG Tab PO SCH ×2 (03:03→09:04)
--- NOTE | 2021-09-29 05:26 | PCM.DCSUM1 ---
Discharge Summary - Hospital Course Free Text/Narrative:: Lala Izaguirre is a 26-year-old 1 now para 1-0-0-1 female was admitted on the a.m. of 09/26/2021 for induction of labor. Patient has a history of adenocarcinoma of the descending/sigmoid colon diagnosed in with partial colectomy and establishment of colostomy in approximately 22 weeks gestational age. She underwent induction of labor with Pitocin initially then AROM with resultant clear fluid. She progressed to approximately 5 cm very s lowly and then the baby appeared to not tolerate labor with decelerations and short bradycardias. Decision was made to proceed with section. Please see preoperative notes. Lala underwent a primary low uterine segment transverse section through Pfannenstiel skin incision under an epidural block on 09/27/2021. Uterus is found to be term size, amniotic fluid is clear. Uterine segment is well-developed. Baby is in vertex presentation with left occiput posterior positioning. Umbilical cord was loosely around the neck x1. There was a three- vessel cord. Baby is in vertex presentation. Cervix was adequately dilated to allow for egress of fluid at that time. She delivered a female infant at 0709 hrs. on 09/27/2021. Baby weighed 6 pounds 5 ounces and had Apgars of 9 and 9. Diagnosis was 1. 39-week intrauterine . 2. intolerance of labor. 3. History of colon cancer diagnosed in pregnancystatus post resection of tumor with placement of a colostomy Postop patient has done very well. She is nursing without problems. She is made good bowel, bladder, ambulatory recovery. Her lochia is minimal. She is voiding without concerns and ambulating well. She is desiring discharge home. Follow-up CBC was within normal limits for postoperative. Vital signs have been stable and patient has been afebrile. She has had no significant concerns re lated to her colostomy site. Diagnosis: Stroke: No - Discharge Data Discharge Date: 09/29/21 Discharge Disposition: Home, Self-Care 01 Condition: Good - Referral to Home Health Primary Care Physician: Eldon Garrison MD - Patient Summary/Data Operative Procedure(s) Performed: Primary low uterine segment transverse section through Pfannenstiel skin incision - Patient Instructions Diet: Regular Diet as Tolerated (Nursing diet with increased calories and calcium is recommended) Activity: As Tolerated (No intercourse or tampons until bleeding resolves) Driving: Do Not Drive Showering/Bathing: May Shower Wound/Incision Care: Keep Operative Site/Wound Site Clean and Dry Notify Provider of: Fever, Increased Pain, Swelling and Redness, Nausea and/or Vomiting - Discharge Plan Home Medications: Home Meds No122/Iron/Folic Acid [ Multi Tablet] 1 each PO DAILY 05/30/21 [History] Acetaminophen/oxyCODONE [Percocet 325-5 MG] 2 tab PO Q4H PRN tablet 09/29/21 [Rx] Ibuprofen [Motrin] 600 mg PO Q6H tablet 09/29/21 [Rx] Levothyroxine [Synthroid] 50 mcg PO DAILY tablet 09/29/21 [Rx] Referrals: Eldon Garrison MD [Primary Care Provider] - (Return to clinicDr. [facility] weeks.) - Discharge Summary/Plan Comment DC Time >30 min.: No Total # of Minutes for Discharge Time: 10 Discharge Summary/Plan Comment: Discharge instructions: 1. Discharge home 2. Diet, activity and follow-up discussed with patient. Recommend nursing diet with increased calories and calcium. 3. Precautions given concern increased pain, bleeding, temperature, signs/symptoms of DVT/PE. 4. Medications per home medication was printed, discussed with and given to the patient. 5. Return to clinic-Dr. Garrison-[facility]. Diagnosis: 1. Term -delivered 2. intolerance of labor 3. History of colorectal cancer with partial colectomy and establishment of colostomy during . Condition: Good - Patient Data Vitals - Most Recent: Last Vital Signs Temp 36.9 C 09/29/21 04:00 Pulse 72 09/29/21 04:00 Resp 15 09/29/21 04:00 BP 117/93 H 09/29/21 04:00 Pulse Ox 99 09/29/21 04:00 Weight - Most Recent: 66.224 kg I&O - Last 24 hours: Intake & Output 09/28/21 09/28/21 09/29/21 14:59 22:59 06:59 Intake Total 500 275 Output Total 750 250 Balance -250 25 Lab Results - Last 24 hrs: Laboratory Results - last 24 hr 09/28/21 Range/Units 06:52 WBC 7.20 (3.98-10.04) K/mm3 RBC 3.84 L (3.98-5.22) M/mm3 Hgb 11.3 D (11.2-15.7) gm/dl Hct 34.5 (34.1-44.9) % MCV 89.8 D (79.4-94.8) fl MCH 29.4 (25.6-32.2) pg MCHC 32.8 (32.2-35.5) g/dl RDW Std Deviation 45.2 (36.4-46.3) fL Plt Count 103 L (182-369) K/mm3 MPV 12.0 (9.4-12.3) fl Neut % (Auto) 71.6 H (34.0-71.1) % Lymph % (Auto) 16.7 L (19.3-51.7) % [place] % (Auto) 9.4 (4.7-12.5) % Eos % (Auto) 1.9 (0.7-5.8) Baso % (Auto) 0.1 (0.1-1.2) % Neut # (Auto) 5.15 (1.56-6.13) K/mm3 Lymph # (Auto) 1.20 (1.18-3.74) K/mm3 [place] # (Auto) 0.68 H (0.24-0.36) K/mm3 Eos # (Auto) 0.14 (0.04-0.36) K/mm3 Baso # (Auto) 0.01 (0.01-0.08) K/mm3 Med Orders - Current: Current Medications Diphenhydramine HCl (Diphenhydramine 50 Mg/Ml Sdv) 25 mg IVPUSH Q6H PRN PRN Reason: Itching or Nausea Ephedrine Sulfate (Ephedrine 50 Mg/Ml Sdv) 5 mg IVPUSH SEECOMMENT PRN PRN Reason: Other Ibuprofen (Ibuprofen 600 Mg Tab) 600 mg PO Q6H [facility] Last Admin: 09/29/21 03:03 Dose: 600 mg Documented by: Levothyroxine Sodium (Levothyroxine 50 Mcg Tab) 50 mcg PO DAILY [facility] Last Admin: 09/28/21 09:30 Dose: 50 mcg Documented by: Naloxone HCl (Naloxone 0.4 Mg/Ml Sdv) 0.1 mg IVPUSH SEECOMMENT PRN PRN Reason: Respiratory Depression Oxycodone/Acetaminophen (Acetaminophen/Oxycodone 325-5 Mg Tab) 1 tab PO Q4H PRN PRN Reason: Pain (moderate 4-6) Oxycodone/Acetaminophen (Acetaminophen/Oxycodone 325-5 Mg Tab) 2 tab PO Q4H PRN PRN Reason: Pain (severe 7-10) Discontinued Medications Azithromycin (Azithromycin 500 Mg Vial) Confirm Administered Dose 500 mg .ROUTE .STK-MED ONE Stop: 09/27/21 06:25 Last Admin: 09/27/21 10:23 Dose: Not Given Documented by: Azithromycin (Azithromycin 500 Mg Advvial) Confirm Administered Dose 500 mg .ROUTE .STK-MED ONE Stop: 09/27/21 06:29 Last Admin: 09/27/21 10:23 Dose: Not Given Documented by: Bupivacaine HCl (Bupivacaine 0.5% 30 Ml Sdv) Confirm Administered Dose 30 ml .ROUTE .STK-MED ONE Stop: 09/27/21 06:45 Last Admin: 09/27/21 07:06 Dose: 20 ml Documented by: Cefazolin Sodium (Cefazolin 1 Gm Vial) Confirm Administered Dose 2 gm .ROUTE .STK-MED ONE Stop: 09/27/21 06:27 Citric Acid/Sodium Citrate (Citric Acid/Sodium Citrate Solution 30 Ml Cup) 30 ml PO ONETIME ONE Stop: 09/27/21 06:29 Last Admin: 09/27/21 06:42 Dose: 30 ml Documented by: Diphenhydramine HCl (Diphenhydramine 50 Mg/Ml Sdv) 25 mg IVPUSH Q6H PRN PRN Reason: pruritis Diphenhydramine HCl (Diphenhydramine 50 Mg/Ml Sdv) 25 mg IVPUSH Q6H PRN PRN Reason: pruritis Ephedrine Sulfate (Ephedrine 50 Mg/Ml Sdv) 5 mg IVPUSH ASDIRECTED PRN PRN Reason: Hypotension Ephedrine Sulfate (Ephedrine 50 Mg/Ml Sdv) 5 mg IVPUSH ASDIRECTED PRN PRN Reason: Hypotension Fentanyl (Fentanyl 100 Mcg/2 Ml Sdv) 100 mcg EPIDUR Q3H PRN PRN Reason: Pain Last Admin: 09/26/21 23:51 Dose: 100 mcg Documented by: Fentanyl (Fentanyl 100 Mcg/2 Ml Sdv) Confirm Administered Dose 100 mcg .ROUTE .STK-MED ONE Stop: 09/27/21 06:27 Fentanyl (Fentanyl 100 Mcg/2 Ml Sdv) 50 mcg IVPUSH Q20M PRN PRN Reason: Pain Fentanyl/Bupivacaine HCl (Bupivacaine/Fentanyl/Ns 100 Ml Bag) 100 ml EPIDUR ASDIRECTED [facility] Last Admin: 09/26/21 23:50 Dose: 100 ml Documented by: Hydromorphone HCl (Hydromorphone 0.5 Mg/0.5 Ml Syringe) 0.5 mg IVPUSH Q10M PRN PRN Reason: Pain (severe 7-10) Oxytocin/Lactated Ringer's (Pitocin In Lr 10 Units/1,000 Ml) 10 unit in 1,000 mls @ 12 mls/hr IV TITRATE KETTY; Protocol Last Titration: 09/27/21 06:12 Dose: 0 munits/min, 0 mls/hr Documented by: Oxytocin/Lactated Ringer's (Pitocin In Lr 10 Units/1,000 Ml) 10 unit in 1,000 mls @ 500 mls/hr IV .CONTINUOUS KETTY Lactated Ringer's (Ringers, Lactated) 1,000 mls @ 100 mls/hr IV ASDIRECTED [facility] Last Admin: 09/27/21 02:53 Dose: 100 mls/hr Documented by: Oxytocin/Lactated Ringer's (Pitocin In Lr 20 Units/1,000 Ml) 20 unit in 1,000 mls @ 66 mls/hr IV TITRATE KETTY; Protocol Last Admin: 09/26/21 10:12 Dose: 66 mls/hr Documented by: Sodium Chloride (Normal Saline) 1,000 mls @ 100 mls/hr .XX ASDIRECTED [facility] Sodium Chloride (Normal Saline) Confirm Administered Dose 1,000 mls @ as directed .ROUTE .STK-MED ONE Stop: 09/27/21 04:44 Last Admin: 09/27/21 10:22 Dose: Not Given Documented by: Cefazolin Sodium/Dextrose 2 gm (/ Premix) 50 mls @ 100 mls/hr IV ONETIME ONE Stop: 09/27/21 06:23 Last Admin: 09/27/21 06:05 Dose: 100 mls/hr Documented by: Cefazolin Sodium/Dextrose (Ancef) Confirm Administered Dose 50 mls @ as directed .ROUTE .STK-MED ONE Stop: 09/27/21 06:00 Last Admin: 09/27/21 10:22 Dose: Not Given Documented by: Azithromycin 500 mg/ Sodium (Chloride) 250 mls @ 250 mls/hr IV ONETIME STA Stop: 09/27/21 07:20 Last Admin: 09/27/21 06:39 Dose: 250 mls/hr Documented by: Sodium Chloride (Normal Saline Advbag) Confirm Administered Dose 250 mls @ as directed .ROUTE .STK-MED ONE Stop: 09/27/21 06:26 Last Admin: 09/27/21 10:23 Dose: Not Given Documented by: Lactated Ringer's (Ringers, Lactated) Confirm Administered Dose 2,000 mls @ as directed .ROUTE .STK-MED ONE Stop: 09/27/21 06:27 Lactated Ringer's (Ringers, Lactated) 1,000 mls @ 125 mls/hr IV ASDIRECTED KETTY Dextrose/Lactated Ringer's (Dextrose 5%-Lactated Ringers) 1,000 mls @ 125 mls/hr IV ASDIRECTED KETTY Stop: 09/27/21 16:43 Ketorolac Tromethamine (Ketorolac 30 Mg/Ml Sdv) Confirm Administered Dose 30 mg .ROUTE .STK-MED ONE Stop: 09/27/21 06:27 Labetalol HCl (Labetalol 100 Mg/20 Ml Mdv) Confirm Administered Dose 100 mg .ROUTE .STK-MED ONE Stop: 09/27/21 07:24 Lidocaine/Epinephrine (Lidocaine 2% With Epinephrine 1:200,000 20 Ml Sdv) Confirm Administered Dose 20 ml .ROUTE .STK-MED ONE Stop: 09/27/21 06:27 Meperidine HCl (Meperidine 50 Mg/Ml Vial) Confirm Administered Dose 50 mg .ROUTE .STK-MED ONE Stop: 09/27/21 07:17 Metoclopramide HCl (Metoclopramide 10 Mg/2 Ml Sdv) 10 mg IVPUSH ONETIME ONE Stop: 09/27/21 06:29 Last Admin: 09/27/21 06:42 Dose: 10 mg Documented by: Miscellaneous Medication (Phenylephrine Hcl In 0.9% Nacl 1 Mg/10 Ml Syringe) 0.1 mg IVPUSH Q10M PRN PRN Reason: Hypotension Miscellaneous Medication (Phenylephrine Hcl In 0.9% Nacl 1 Mg/10 Ml Syringe) Confirm Administered Dose 1 mg .ROUTE .[place]-MED ONE Stop: 09/27/21 06:27 Miscellaneous Medication (Phenylephrine Hcl In 0.9% Nacl 1 Mg/10 Ml Syringe) 0.1 mg IVPUSH Q10M PRN PRN Reason: Hypotension Misoprostol (Misoprostol 25 Mcg (1/4 Of 100 Mcg) Tab) 50 mcg VAG Q3HR PRN PRN Reason: cervical ripening Last Admin: 09/26/21 15:06 Dose: 50 mcg Documented by: Morphine Sulfate (Morphine Pf 10 Mg/10 Ml Sdv) Confirm Administered Dose 10 mg .ROUTE .[place] IS ONE Stop: 09/27/21 06:28 Nalbuphine HCl (Nalbuphine 10 Mg/1 Ml Vial) 10 mg IVPUSH Q2H PRN PRN Reason: Pain Ondansetron HCl (Ondansetron 4 Mg/2 Ml Sdv) 4 mg IVPUSH Q4H PRN PRN Reason: Nausea/Vomiting Ondansetron HCl (Ondansetron 4 Mg/2 Ml Sdv) 4 mg IVPUSH ONETIME PRN PRN Reason: Nausea/Vomiting Ondansetron HCl (Ondansetron 4 Mg/2 Ml Sdv) Confirm Administered Dose 4 mg .ROUTE .[place] IS ONE Stop: 09/27/21 06:27 Ondansetron HCl (Ondansetron 4 Mg/2 Ml Sdv) 4 mg IVPUSH ONETIME PRN PRN Reason: Nausea/Vomiting Oxytocin (Oxytocin 10 Units/1 Ml Sdv) Confirm Administered Dose 20 unit .ROUTE .[place] IS ONE Stop: 09/27/21 06:27 Sodium Chloride (Sodium Chloride 0.9% 10 Ml Syringe) 10 ml FLUSH ASDIRECTED PRN PRN Reason: Keep Vein Open Sodium Chloride (Sodium Chloride 0.9% 10 Ml Syringe) 10 ml FLUSH ASDIRECTED PRN PRN Reason: Keep Vein Open
[2021-09-29] MEDS: Levothyroxine 50 MCG Tab PO SCH (09:06)
--- NOTE | 2021-10-07 06:25 | PCM.SN.2 ---
- Free Text/Narrative Note: Postoperative day #1-09/28/2021 note: Patient is doing well in the postop period. Minimal lochia, voiding well, ambulated without problems. Nursing without concerns. Pain is under reasonably good control. Patient is afebrile, vital signs are stable Abdomen is flat, soft, uterus is below the umbilicus and is firm and nontender. Incision is intact, dry, no evidence of infection, hematoma or seroma. Colostomy bag in place. Legs are nontender. Assessment: Postop/ recovery going well. Plan: Routine care. Patient be discharged home within the next 24- 48 hours.
== END 2021-09-29 11:05 | disposition home or self-care (01) | DRG 540 ==
LOC: JD.OB 02:55 → OBSVTOIN 09-27 07:09 → JD.OB 09-27 07:10
PROVIDERS: ADMIT Obstetrics & Gynecology; ATTEND Obstetrics & Gynecology
PROC: 10D00Z1 Extraction of Products of Conception, Low, Open Approach (ICD-10-PCS; principal; 2021-09-27)
PROC: 10907ZC Drainage of Amniotic Fluid, Therapeutic from Products of Conception, Via Natural or Artificial Opening (ICD-10-PCS; 2021-09-27)
PROC: 3E033VJ Introduction of Other Hormone into Peripheral Vein, Percutaneous Approach (ICD-10-PCS; 2021-09-27)
PROC: 10H07YZ Insertion of Other Device into Products of Conception, Via Natural or Artificial Opening (ICD-10-PCS; 2021-09-27)
DX: O99.284 Endocrine, nutritional and metabolic diseases complicating childbirth (principal); O76 Abnormality in fetal heart rate and rhythm complicating labor and delivery; Z3A.39 39 weeks gestation of pregnancy; Z37.0 Single live birth; E03.9 Hypothyroidism, unspecified; Z93.3 Colostomy status; Z85.038 Personal history of other malignant neoplasm of large intestine; Z20.822 Contact with and (suspected) exposure to COVID-19
CPT/HCPCS: 01961; 36415; 51702; 59025; 82565; 82570; 83615; 84156; 84450; 84460; 84520; 84550; 85025; 85610; 86592; 86850; 86900; 86901; 99140; A9270-GY; J0456; J0690; J1885; J2175; J2270; J2370; J2405; J2590; J2765; J3010; J3490; J7050; J7120; U0002

== ENCOUNTER 2022-05-23 07:56 | Day surgery (SDC) | payer BC, MEDICAID ==
[~2022-05-23 07:56] MED LIST: Lactated Ringers 1,000 ML IV SCH; Lidocaine 1%/Sod Bicarbonate in NS 8.4% 1 ML Syringe IDERM PRN; Sodium Chloride 0.9% 10 ML Syringe FLUSH PRN; Sodium Chloride 0.9% 10 ML Syringe FLUSH SCH
[2022-05-23] MEDS ORDERED: Midazolam 1 MG/ML 2 ML SDV ONE (08:07)
[2022-05-23] MEDS ORDERED: Propofol 200 MG/20 ML SDV ONE (08:07)
[2022-05-23] MEDS ORDERED: Lidocaine 1% 4 ML ONE (08:07)
== END 2022-05-23 10:19 | disposition home or self-care (01) ==
LOC: JD.SDS 07:56
PROVIDERS: ATTEND Surgery
DX: K52.9 Noninfective gastroenteritis and colitis, unspecified (principal); C18.9 Malignant neoplasm of colon, unspecified; I10 Essential (primary) hypertension; E03.9 Hypothyroidism, unspecified; Z79.890 Hormone replacement therapy; Z93.3 Colostomy status; Z98.890 Other specified postprocedural states
CPT/HCPCS: 45380; 81025; J2250; J2704; J7120; 00811

== ENCOUNTER 2023-06-07 05:26 | Inpatient (IN) | payer BC ==
[2023-06-07] MEDS ORDERED: Citric Acid/Sodium Citrate Solution 30 ML Cup PO ONE (06:04)
[2023-06-07] MEDS ORDERED: Metoclopramide 10 MG/2 ML SDV IVPUSH ONE (06:07)
[2023-06-07] MEDS ORDERED: Oxytocin/Lactated Ringers 10 UNIT/1,000 ML BAG IV SCH (06:15)
[2023-06-07 06:20] LABS: BASOPHILS ABSOLUTE AUTO 0.01 K/mm3 (0.01-0.08); BASOPHILS PERCENT AUTO 0.1 % (0.1-1.2); EOSINOPHILS ABSOLUTE AUTO 0.11 K/mm3 (0.04-0.36); EOSINOPHILS PERCENT AUTO 1.6 (0.7-5.8); HEMATOCRIT 39.7 % (34.1-44.9); HEMOGLOBIN 13.5 gm/dl (11.2-15.7); IMMATURE GRAN ABSOLUTE AUTO 0.03 K/mm3 (0.00-0.10); IMMATURE GRAN PERCENT AUTO 0.4 % (<=1.0); LYMPHOCYTES ABSOLUTE AUTO 1.15 K/mm3 (1.18-3.74); MEAN CORPUSCULAR HEMOGLOBIN 29.5 pg (25.6-32.2); MEAN CORPUSCULAR VOLUME 86.7 fl (79.4-94.8); MEAN PLATELET VOLUME 12.2 fl (9.4-12.3); MONOCYTES ABSOLUTE AUTO 0.62 K/mm3 (0.24-0.36); MONOCYTES PERCENT AUTO 9.2 % (4.7-12.5); NEUTROPHILS ABSOLUTE AUTO 4.85 K/mm3 (1.56-6.13); NEUTROPHILS PERCENT AUTO 71.7 % (34.0-71.1); PLATELET COUNT,PLT 121 K/mm3 (182-369); RED BLOOD CELL COUNT 4.58 M/mm3 (3.98-5.22); WHITE BLOOD CELL COUNT,WBC 6.77 K/mm3 (3.98-10.04)
[2023-06-07] MEDS: Lactated Ringers 1,000 ML IV ONE ×2 (06:24→06:46)
[2023-06-07] MEDS ORDERED: Morphine PF 10 MG/10 ML SDV ONE (07:29)
[2023-06-07] MEDS ORDERED: ceFAZolin 2 GM Vial ONE (07:29)
[2023-06-07] MEDS ORDERED: Oxytocin 10 Units/1 ML SDV ONE ×2 (07:29→08:16)
[2023-06-07] MEDS ORDERED: fentaNYL 100 MCG/2 ML SDV ONE ×2 (07:29→08:06)
[2023-06-07] MEDS ORDERED: Ondansetron 4 MG/2 ML SDV ONE (07:33)
[2023-06-07] MEDS ORDERED: Ketorolac 30 MG/ML SDV ONE (07:33)
[2023-06-07] MEDS ORDERED: Bupivacaine 0.5% 30 ML SDV ONE (07:54)
[2023-06-07] MEDS ORDERED: Dexmedetomidine 200 MCG/2 ML SDV ONE (07:57)
[2023-06-07] MEDS ORDERED: Lactated Ringers 1,000 ML ONE ×2 (08:16)
[2023-06-07] MEDS ORDERED: Ondansetron 4 MG/2 ML SDV IVPUSH PRN (09:08)
[2023-06-07] MEDS ORDERED: diphenhydrAMINE 50 MG/ML SDV IVPUSH PRN ×2 (09:08→09:23)
[2023-06-07] MEDS ORDERED: fentaNYL 100 MCG/2 ML SDV IVPUSH PRN (09:08)
[2023-06-07] MEDS ORDERED: ePHEDrine 50 MG/ML SDV IVPUSH PRN (09:23)
[2023-06-07] MEDS ORDERED: Ondansetron 4 MG/2 ML SDV IV PRN (09:23)
[2023-06-07] MEDS ORDERED: Naloxone 0.4 MG/ML SDV IVPUSH PRN (09:23)
[2023-06-07] MEDS ORDERED: Dextrose 5%-Lactated Ringers 1,000 ML IV SCH (09:23)
[2023-06-07] MEDS ORDERED: Acetaminophen/oxyCODONE 325-5 MG Tab PO PRN (09:23)
[2023-06-07] MEDS: Levothyroxine 75 MCG Tab PO SCH (10:31)
[2023-06-07] MEDS: Ketorolac 30 MG/ML SDV IVPUSH SCH ×2 (14:29→20:09)
[2023-06-08] MEDS: Ketorolac 30 MG/ML SDV IVPUSH SCH (02:45)
[2023-06-08 05:19] LABS: HEMOGLOBIN 11.4 gm/dl (11.2-15.7); MEAN CORPUSCULAR HEMOGLOBIN 29.4 pg (25.6-32.2); MEAN CORPUSCULAR HGB CONC 33.5 g/dl (32.2-35.5); MEAN CORPUSCULAR VOLUME 87.6 fl (79.4-94.8); MEAN PLATELET VOLUME 12.2 fl (9.4-12.3); PLATELET COUNT,PLT 120 K/mm3 (182-369); RED BLOOD CELL COUNT 3.88 M/mm3 (3.98-5.22); WHITE BLOOD CELL COUNT,WBC 8.35 K/mm3 (3.98-10.04)
[2023-06-08] MEDS: Levothyroxine 75 MCG Tab PO SCH (10:49)
[2023-06-08] MEDS: Acetaminophen/oxyCODONE 325-5 MG Tab PO PRN ×2 (14:33→20:55)
[2023-06-08] MEDS: Ibuprofen 600 MG Tab PO PRN (20:54)
[2023-06-09] MEDS: Ibuprofen 600 MG Tab PO PRN (05:19)
[2023-06-09] MEDS: Acetaminophen/oxyCODONE 325-5 MG Tab PO PRN (05:19)
[2023-06-09] MEDS ORDERED: Docusate Sodium 100 MG Cap PO ONE (08:35)
[2023-06-09] MEDS: Levothyroxine 75 MCG Tab PO SCH (08:39)
== END 2023-06-09 11:40 | disposition home or self-care (01) | DRG 540 ==
LOC: JD.OB 05:26
PROVIDERS: ADMIT Obstetrics & Gynecology; ATTEND Obstetrics & Gynecology
PROC: 10D00Z1 Extraction of Products of Conception, Low, Open Approach (ICD-10-PCS; principal; 2023-06-07)
DX: O34.211 Maternal care for low transverse scar from previous cesarean delivery (principal); O99.824 Streptococcus B carrier state complicating childbirth; O99.284 Endocrine, nutritional and metabolic diseases complicating childbirth; E03.9 Hypothyroidism, unspecified; Z3A.39 39 weeks gestation of pregnancy; Z85.038 Personal history of other malignant neoplasm of large intestine; Z37.0 Single live birth; Z79.890 Hormone replacement therapy
CPT/HCPCS: 01961; 36415; 59025; 85025; 85027; 86592; 86850; 86900; 86901; 94762; A9270-GY; J0690; J1885; J2274; J2405; J2590; J2765; J3010; J3490; J7120; J7121